=== PATIENT | female | born 1980 | race Caucasian/White ===

== ENCOUNTER 2018-11-17 14:05 | Inpatient (IN) | payer MEDICAID, OTHER ==
--- NOTE | 2018-11-17 14:43 | ER Document Report ---
ED Medical Screen (RME) - General Chief Complaint: Shortness Of Breath Stated Complaint: DIFFICULTY BREATHING Time Seen by Provider: 11/17/18 14:35 Primary Care Provider: TERESITA HUMPHREYS MD [Primary Care Provider] - Follow up as needed Mode of Arrival: Ambulatory Information source: Patient Notes: Patient is a 37-year-old female presented to the emergency department with multiple complaints. Patient reports pain and swelling to her right lower extremity. Patient states she had a DVT to this extremity approximately 4 years ago. Patient reports over the last week she has had increased pain and swelling, states that she wore compression hose which reduce the swelling however the pain persists. She states the pain feels similar to when she had a DVT in the past. Patient also reports extreme shortness of breath with any exertion as well as intermittent chest pain on the right-hand side. Patient denies any history of COPD or asthma. Patient reports that she is not on any anticoagulant therapy. Nursing staff made aware of need for large-bore IV in the AC. Exam: Lung sounds are clear and equal bilaterally. S1-S2 present with normal rate and rhythm. I have greeted and performed a rapid initial assessment of this patient. A comprehensive ED assessment and evaluation of the patient, analysis of test results and completion of the medical decision making process will be conducted by additional ED providers. Dictation of this chart was performed using voice recognition software; therefore, there may be some unintended grammatical errors. TRAVEL OUTSIDE OF THE [place] IN LAST 30 DAYS: No - Related Data Allergies/Adverse Reactions: latex [Latex] Allergy (Verified 11/17/18 14:13) Past Medical History - Past Medical History Cardiac Medical History: Reports: Hx Pulmonary Embolism Musculoskeltal Medical History: Reports Hx Fibromyalgia Psychiatric Medical History: Reports: Hx Bipolar Disorder, Hx Depression - Anxiety Past Surgical History: Reports: Hx Section, Hx Gastric Bypass Surgery - Immunizations Hx Diphtheria, Pertussis, Tetanus Vaccination: Yes Doctor's Discharge - Discharge Referrals: TERESITA HUMPHREYS MD [Primary Care Provider] - Follow up as needed
[2018-11-17 15:03] LABS: ABSOLUTE EOSINOPHILS # (AUTO) 0.1 10^3/uL (0.0-0.6); ABSOLUTE MONOCYTES (AUTO) 0.1 10^3/uL (0.1-1.4); ABSOLUTE NEUT (AUTO) 2.3 10^3/uL (1.7-8.2); BASOPHILS % (AUTO) 0.2 % (0-2); EOSINOPHILS % (AUTO) 1.5 % (0-6); HEMATOCRIT 17.6 % (36.0-47.0); MEAN CORPUSCULAR HEMOGLOBIN 45.4 pg (27.0-33.4); MEAN CORPUSCULAR HGB CONC 35.8 g/dL (32.0-36.0); PLATELET COUNT 168 10^3/uL (150-450); RED BLOOD COUNT 1.39 10^6/uL (3.72-5.28); RED CELL DISTRIBUTION WIDTH 23.2 % (11.5-14.0); SEGMENTED NEUTROPHILS % (AUTO) 67.3 % (42-78); TOTAL CELLS COUNTED % (AUTO) 100 %; WHITE BLOOD COUNT 3.4 10^3/uL (4.0-10.5)
[2018-11-17 15:07] LABS: PROTHROMBIN TIME 13.7 SEC (11.4-15.4)
[2018-11-17 15:08] LABS: PARTIAL THROMBOPLASTIN TIME 26.6 SEC (23.5-35.8)
[2018-11-17 15:10] LABS: MEAN CORPUSCULAR VOLUME 127 fl (80-97)
[2018-11-17 15:11] LABS: HEMOGLOBIN 6.3 g/dL (12.0-15.5)
[2018-11-17 15:26] LABS: ANISOCYTOSIS 3+; OVALOCYTES 1+; POIKILOCYTOSIS 2+; POLYCHROMASIA 1+; SCHISTOCYTES 1+; TEAR DROP CELLS 1+; TOXIC GRANULATION SLIGHT
[2018-11-17 15:27] LABS: PLATELET COMMENT ADEQUATE
[2018-11-17 15:32] LABS: ALANINE AMINOTRANSFERASE 23 U/L (9-52); ALBUMIN 4.5 g/dL (3.5-5.0); ALKALINE PHOSPHATASE 54 U/L (38-126); ANION GAP 10 (5-19); ASPARTATE AMINO TRANSFERASE 54 U/L (14-36); BILIRUBIN,DIRECT 0.3 mg/dL (0.0-0.4); BLOOD UREA NITROGEN 8 mg/dL (7-20); CALCIUM 9.3 mg/dL (8.4-10.2); CARBON DIOXIDE 29 mmol/L (22-30); CHLORIDE 101 mmol/L (98-107); GLUCOSE 92 mg/dL (75-110); POTASSIUM 4.5 mmol/L (3.6-5.0); SODIUM 139.7 mmol/L (137-145); TOTAL PROTEIN 6.9 g/dL (6.3-8.2)
--- NOTE | 2018-11-17 15:48 | RADIOLOGY REPORT (SQ) ---
EXAM DESCRIPTION: VENOUS UNILATERAL LOWER COMPLETED DATE/TIME: 11/17/2018 3:27 pm REASON FOR STUDY: hx DVT, pain/swelling COMPARISON: 08/22/2014 TECHNIQUE: Dynamic and static elizalde scale and color images acquired of the right leg venous system. S elected spectral images acquired with additional compression and augmentation maneuvers. The contrala teral common femoral vein and saphenofemoral junction were also imaged. Images stored on PACS. LIMITATIONS: None. FINDINGS: RIGHT COMMON FEMORAL: Normal phasicity, compression and augmentation. No visualized echogenic material on g ray scale. No defects on color images. FEMORAL: Normal compression and augmentation. No visualized echogenic material on elizalde scale. No defe cts on color images. POPLITEAL: The right popliteal vein is abnormal, partially occluded by acute hypoechoic clot. CALF VESSELS: Normal compression, augmentation. No visualized echogenic material on elizalde scale. No de fects on color images. GSV and SSV: Normal compression, augmentation. No visualized echogenic material on elizalde scale. No def ects on color images. ANY DEEP VENOUS INSUFFICIENCY: There is reflux in the popliteal vein on Valsalva. No other reflux on Valsalva. ANY EVIDENCE OF POPLITEAL CYST: No. OTHER: No other significant finding. LEFT COMMON FEMORAL VEIN AND SAPHENOFEMORAL JUNCTION: Normal phasicity, compression and augmentation. No visualized echogenic material on elizalde scale. No de fects on color images. IMPRESSION: INCOMPLETELY OCCLUSIVE HYPOECHOIC ACUTE CLOT IN THE RIGHT POPLITEAL VEIN COMMENT: REPORT CALLED TO THE PATIENT'S PRACTITIONER IN THE EMERGENCY ROOM TECHNICAL DOCUMENTATION: JOB ID: [id number] [employer]- All Rights Reserved Reading location - IP/workstation name: [email or web address]
[2018-11-17] MEDS ORDERED: NORMAL SALINE 250 ML IV PRN (16:05)
--- NOTE | 2018-11-17 16:18 | RADIOLOGY REPORT (SQ) ---
EXAM DESCRIPTION: CTA CHEST COMPLETED DATE/TIME: 11/17/2018 4:06 pm REASON FOR STUDY: sob, cp, hx of dvt, eval for PE COMPARISON: 09/25/2014 CT in chest TECHNIQUE: CT scan of the chest performed using helical scanning technique with dynamic intravenous contrast injection. Images reviewed with lung, soft tissue and bone windows. Reconstructed coronal and sagittal MPR images reviewed. Additional 3 dimensional post-processing performed to develop Maximal Intensity Projection images (AL P). All images stored on PACS. All CT scanners at this facility use dose modulation, iterative reconstruction, and/or weight based d osing when appropriate to reduce radiation dose to as low as reasonably achievable (ALARA). [facility]: Dose Right [facility]: CareDose [facility]: Dose Right [facility]: Teradose 4D [facility]: Canpages CONTRAST TYPE AND DOSE: contrast/concentration: Isovue 350.00 mg/ml; Total Contrast Delivered: 76.0 ml; Total Saline Delivered: 110.0 ml Contrast bolus optimized for the pulmonary arteries and thoracic aorta. RENAL FUNCTION: None required. The patient is less than 50 years old. RADIATION DOSE: CT Rad equipment meets quality standard of care and radiation dose reduction techniq ues were employed. CTDIvol: 6.6 - 16.5 mGy. DLP: 573 mGy-cm. . LIMITATIONS: None. FINDINGS: LUNGS AND PLEURA: No masses, infiltrates, or pneumothorax. No pleural effusions or pleura l calcifications. AORTA AND GREAT VESSELS: No aneurysm. No thoracic aortic dissection. HEART: No pericardial effusion. No significant coronary artery calcifications. PULMONARY ARTERIES: No emboli visualized in the main pulmonary arteries or the segmental branches. HILAR AND MEDIASTINAL STRUCTURES: No identified masses or abnormal nodes. HARDWARE: None in the chest. UPPER ABDOMEN: Surgical clips post gastric bypass THYROID AND OTHER SOFT TISSUES: No masses. No adenopathy. BONES: No acute or significant finding. 3D MIPS: Confirm above findings. OTHER: No other significant finding. IMPRESSION: NORMAL CTA OF THE CHEST. NO PULMONARY EMBOLI. COMMENT: Quality ID # [id number]: Final reports with documentation of one or more dose reduction techniques (e.g., Automated exposure control, adjustment of the mA and/or kV according to patient size, use of iterative reconstruction technique) TECHNICAL DOCUMENTATION: JOB ID: [id number] [employer]- All Rights Reserved Reading location - IP[facility]workstation name: [email or web address]
--- NOTE | 2018-11-17 16:34 | ER Document Report ---
ED General - General Mode of Arrival: Ambulatory TRAVEL OUTSIDE OF THE [place] IN LAST 30 DAYS: No <KAT VICK - Last Filed: 11/17/18 17:11> <JUAN TATUM E - Last Filed: 11/18/18 14:24> - General Chief Complaint: Shortness Of Breath Stated Complaint: DIFFICULTY BREATHING Time Seen by Provider: 11/17/18 14:35 - HPI Notes: Patient is a 37-year-old female with a history of gastric bypass, anemia requiring previous iron infusions, DVT, PE (no longer on any anticoagulation) who presents to the emergency department complaining of dyspnea on exertion, right leg pain/swelling, and intermittent right chest pain with deep breathing. Patient states that her leg pain and swelling has been on and off over the past 2 months in the dyspnea on exertion/right-sided chest pain more so over the past week. Patient states that she was originally placed on Xarelto for DVT and subsequently developed PE thereafter and was then put on Lovenox and Coumadin. She was seen by hematology. Patient states that they do not have an exact cause for her blood clotting, but she was smoking, on control, and over the age of 28. She is no longer smoking or on any control. Patient states that she ran out of her insurance a year after starting her medicines and has not been on it since. She is still eating and drinking without difficulties. She is urinating normally and having normal bowel movements. She has been no melena or hematochezia. No heavy menstrual bleeding. Denies any headache, fever, neck pain, URI, sore throat, palpitations, syncope, cough, wheeze, abdominal pain, nausea/vomiting/diarrhea, urinary retention, dysuria, hematuria, or rash. (KAT VICK) - Related Data Allergies/Adverse Reactions: latex [Latex] Allergy (Verified 11/17/18 14:13) Past Medical History - General Information source: Patient - Social History Smoking Status: Former Smoker Chew tobacco use (# tins/day): No Frequency of alcohol use: None Drug Abuse: None Family History: Reviewed & Not Pertinent Patient has suicidal ideation: No Patient has homicidal ideation: No - Past Medical History Cardiac Medical History: Reports: Hx Pulmonary Embolism Renal/ Medical History: Denies: Hx Peritoneal Dialysis Musculoskeletal Medical History: Reports Hx Fibromyalgia Psychiatric Medical History: Reports: Hx Bipolar Disorder, Hx Depression - Anxiety Past Surgical History: Reports: Hx Section, Hx Gastric Bypass Surgery - Immunizations Hx Diphtheria, Pertussis, Tetanus Vaccination: Yes <KTA VICK - Last Filed: 11/17/18 17:11> Review of Systems - Review of Systems -: Yes All other systems reviewed and negative <KAT VICK - Last Filed: 11/17/18 17:11> Physical Exam <KAT VICK - Last Filed: 11/17/18 17:11> - Vital signs Vitals: Temp Pulse BP Pulse Ox 98.2 F 91 139/81 H 100 11/17/18 14:35 11/17/18 14:35 11/17/18 14:35 11/17/18 14:35 - Notes Notes: PHYSICAL EXAMINATION: GENERAL: Well-appearing, well-nourished and in no acute distress. HEAD: Atraumatic, normocephalic. EYES: Pupils equal round and reactive to light, extraocular movements intact, sclera anicteric, conjunctiva are normal. ENT: Nares patent and without discharge. oropharynx clear without exudates. No tonsilar hypertrophy or erythema. Moist mucous membranes. NECK: Normal range of motion, supple without lymphadenopathy LUNGS: Breath sounds clear to auscultation bilaterally and equal. No wheezes rales or rhonchi. HEART: Regular rate and rhythm without murmurs, rubs, gallops. ABDOMEN: Soft, nontender, nondistended abdomen. No guarding, no rebound. No masses appreciated. Normal bowel sounds present. No CVA tenderness bilaterally. Musculoskeletal: FROM to passive/active. Strength 5+/5. Jarocho neg. + mild swelling RLE >LLE. Extremities: No cyanosis, clubbing, or edema b/l. Peripheral pulses 2+. Capillary refill less than 3 seconds. NEUROLOGICAL: Normal speech, normal gait. PSYCH: Normal mood, normal affect. SKIN: Warm, Dry, normal turgor, no rashes or lesions noted. (KAT VICK) Course - Laboratory Result Diagrams: 11/17/18 14:46 11/17/18 14:46 <KAT VICK - Last Filed: 11/17/18 17:11> - Laboratory Result Diagrams: 11/18/18 04:20 11/18/18 04:20 - Diagnostic Test Radiology reviewed: Image reviewed, Reports reviewed <JUAN TATUM - Last Filed: 11/18/18 14:24> - Re-evaluation Re-evalutation: 11/17/18 17:[address] Tatum who is in agreement with admit/plan. Patient is an afebrile, well-hydrated, 37-year-old female who presents emergency department with an acute DVT to the right leg as well as dyspnea on exertion and subsequent anemia requiring transfusion with a hemoglobin of 6.3. Vitals are currently acceptable. PE is otherwise unremarkable. See Doppler result. CTA of the chest was unremarkable. 2 units of blood has been ordered as well as Lovenox. I did call and review with our hospitalist, Dr. Hoyt, who accepted pt to telemetry. Pt in agreement with plan. (KAT VICK) 11/18/18 14:23 Patient was seen and examined as requested by [facility]. Patient is a 37-year-old female with previous history of DVT who presents with intermittent right lower extremity swelling, shortness of breath. Patient found to have a hemoglobin of 6.3. CT of the chest was negative for PE but Doppler was positive for DVT. Concern as patient has no insurance, no follow-up so best outcome for this patient is to be brought into the hospital. PHYSICAL EXAMINATION: GENERAL: Well-appearing, well-nourished and in no acute distress. HEAD: Atraumatic, normocephalic. EYES: Pupils equal round extraocular movements intact, conjunctiva are normal. ENT: Nares patent NECK: Normal range of motion LUNGS: No respiratory distress Musculoskeletal: Normal range of motion NEUROLOGICAL: Normal speech, normal gait. PSYCH: Normal mood, normal affect. SKIN: Warm, Dry, normal turgor, no rashes or lesions noted. Patient was accepted by the hospitalist to telemetry (JUAN TATUM) - Vital Signs Vital signs: Temp Pulse Resp BP Pulse Ox 98.1 F 65 16 101/63 97 11/18/18 11:26 11/18/18 11:26 11/18/18 11:26 11/18/18 11:26 11/18/18 11:26 - Laboratory Laboratory results interpreted by me: 04/29/19 04/29/19 04/29/19 14:46 14:46 14:46 WBC 3.4 L RBC 1.39 L Hgb 6.3 L Hct 17.6 L MCV 127 H MCH 45.4 H RDW 23.2 H Monocytes % 2.0 L Total Bilirubin 2.0 H AST 54 H Crossmatch See Detail Discharge - Discharge Admitting Provider: Evelina (Hospitalist) Unit Admitted: Telemetry <KAT IVCK - Last Filed: 11/17/18 17:11> <JUAN TATUM - Last Filed: 11/18/18 14:24> - Discharge Clinical Impression: DVT (deep venous thrombosis) Qualifiers: DVT location: lower extremity Affected thrombotic vein of extremity: popliteal Chronicity: acute Laterality: right Qualified Code(s): I82.431 - Acute embolism and thrombosis of right popliteal vein Anemia Qualifiers: Anemia type: B12 deficiency Vitamin B12 deficiency anemia type: other dietary B12 deficiency Qualified Code(s): D51.3 - Other dietary vitamin B12 deficiency anemia Condition: Stable Disposition: ADMITTED INPATIENT
[2018-11-17] MEDS ORDERED: MORPHINE SULFATE 10 MG/ML INJ IV ONE (17:20)
[2018-11-17] MEDS ORDERED: MAG HYDROX/AL HYDROX/SIMETH SUSP 30 ML UDCUP PO PRN (17:40)
[2018-11-17] MEDS ORDERED: PROMETHAZINE HCL INJ 25 MG/1 ML VIAL IV PRN (17:40)
[2018-11-17] MEDS ORDERED: ALBUTEROL SULFATE 0.083% NEB 2.5 MG/3 ML AMPUL NEB PRN (17:40)
[2018-11-17] MEDS: ENOXAPARIN SODIUM INJ 100 MG/1 ML DISP.SYRIN SUBCUT SCH ×2 (17:50→21:57)
--- NOTE | 2018-11-17 18:19 | PDOC H&P ---
History of Present Illness Admission Date/PCP: 11/17/18 17:19 History of Present Illness: FREDDIE TAYLOR is a 37 year old female medical history of gastric bypass, chronic anemia requiring previous iron infusions, DVT, PE (currently not on anticoagulation) presented to ED complaining of dyspnea on exertion, right lower extremity swelling and pain, and right-sided pleuritic chest pain. Patient stated that her leg pain and swelling has been going on on and off for the last 2 months and her dyspnea on exertion and right-sided chest pain has been happening for the last 1 week. For her DVT she was originally placed on Xarelto and subsequently had a PE and was switched to Coumadin and Lovenox and Coumadin. She was followed by environmental issues instructor and states that she was never worked up for hypercoagulable state or chronic anemia, it was presumed that her blood clotting was due to her smoking, being over 28 and being on control. She no longer smokes, and is not on a control. Unfortunately her insurance ran out and she has not been taking her anticoagulation for the last 1 year. She denies having any miscarriages, had one successful , denies any family history of clotting disorder, or anemia. Denies any recent travel, surgery, trauma, history of malignancy, miscarriages, hematuria, vaginal bleeding, menstrual bleeding, hematochezia, melena, hemoptysis or hematemesis. She denies any fever, chills, nausea, vomiting, diarrhea, constipation, numbness, tingling, weakness or any urinary symptoms. In ED she was found to have hemoglobin of 6.3, coags within normal limits, history within normal limits, troponins negative. CTA negative for PE, venous Doppler positive for and completely occlusive hypoechoic acute clot in the right popliteal vein. Past Medical History Cardiac Medical History: Reports: Pulmonary Embolism Musculoskeltal Medical History: Reports: Fibromyalgia Psychiatric Medical History: Reports: Bipolar Disorder, Depression - Anxiety Past Surgical History Past Surgical History: Reports: Section, Gastric Bypass Surgery Social History Smoking Status: Former Smoker Frequency of Alcohol Use: Occasional Hx Recreational Drug Use: No Hx Prescription Drug Abuse: No Family History Family History: Reviewed & Not Pertinent Parental Family History Reviewed: Yes Children Family History Reviewed: Yes Sibling(s) Family History Reviewed.: Yes Medication/Allergy Allergies/Adverse Reactions: latex [Latex] Allergy (Verified 11/17/18 14:13) Review of Systems Review of Systems: as per HPI Physical Exam Vital Signs: Temp Pulse Resp BP Pulse Ox 98.2 F 91 139/81 H 100 11/17/18 14:35 11/17/18 14:35 11/17/18 14:35 11/17/18 14:35 Intake & Output 11/16/18 11/17/18 11/18/18 06:59 06:59 06:59 Weight 88.1 kg General appearance: PRESENT: no acute distress, well-developed, well-nourished Head exam: PRESENT: atraumatic, normocephalic Eye exam: PRESENT: conjunctiva pink, EOMI, PERRLA. ABSENT: scleral icterus Ear exam: PRESENT: normal external ear exam Mouth exam: PRESENT: moist, tongue midline Neck exam: ABSENT: carotid bruit, JVD, lymphadenopathy, thyromegaly Respiratory exam: PRESENT: clear to auscultation na. ABSENT: rales, rhonchi, wheezes Cardiovascular exam: PRESENT: RRR. ABSENT: diastolic murmur, rubs, systolic murmur Pulses: PRESENT: normal dorsalis pedis pul Vascular exam: PRESENT: normal capillary refill GI/Abdominal exam: PRESENT: normal bowel sounds, soft. ABSENT: distended, guard ing, mass, organolmegaly, rebound, tenderness Rectal exam: PRESENT: deferred Extremities exam: PRESENT: full ROM, tenderness - TTP right calf. ABSENT: calf tenderness, clubbing, pedal edema Neurological exam: PRESENT: alert, awake, oriented to person, oriented to place, oriented to time, oriented to situation, CN II-XII grossly intact. ABSENT: motor sensory deficit Psychiatric exam: PRESENT: appropriate affect, normal mood. ABSENT: homicidal ideation, suicidal ideation Skin exam: PRESENT: dry, intact, warm. ABSENT: cyanosis, rash Results Laboratory Results: 11/17/18 14:46 11/17/18 14:46 11/17/18 11/17/18 11/17/18 14:46 14:46 14:46 WBC 3.4 L RBC 1.39 L Hgb 6.3 L Hct 17.6 L MCV 127 H MCH 45.4 H MCHC 35.8 RDW 23.2 H Plt Count 168 Seg Neutrophils % 67.3 Lymphocytes % 29.0 Monocytes % 2.0 L Eosinophils % 1.5 Basophils % 0.2 Absolute Neutrophils 2.3 Absolute Lymphocytes 1.0 Absolute Monocytes 0.1 Absolute Eosinophils 0.1 Absolute Basophils 0.0 Sodium 139.7 Potassium 4.5 Chloride 101 Carbon Dioxide 29 Anion Gap 10 BUN 8 Creatinine 0.60 Est GFR ( Amer) > 60 Est GFR (Non-Af Amer) > 60 Glucose 92 Calcium 9.3 Total Bilirubin 2.0 H AST 54 H ALT 23 Alkaline Phosphatase 54 Total Protein 6.9 Albumin 4.5 Blood Type B POSITIVE Antibody Screen NEGATIVE 11/17/18 14:46 Troponin I < 0.012 Impressions: Venous Doppler Study 11/17/18 14:39 IMPRESSION: INCOMPLETELY OCCLUSIVE HYPOECHOIC ACUTE CLOT IN THE RIGHT POPLITEAL VEIN Chest/Abdomen CTA 11/17/18 14:43 IMPRESSION: NORMAL CTA OF THE CHEST. NO PULMONARY EMBOLI. Assessment and Plan - Diagnosis (1) DVT (deep venous thrombosis) Qualifiers: DVT location: lower extremity Affected thrombotic vein of extremity: popliteal Chronicity: acute Laterality: right Qualified Code(s): I82.431 - Acute embolism and thrombosis of right popliteal vein Is this a current diagnosis for this admission?: Yes Plan: History of recurrent DVT and PE. Start on therapeutic dose Lovenox. Will work-up for hypercoagulable state. Consult hematology. Admit to telemetry. (2) Anemia Qualifiers: Anemia type: unspecified type Qualified Code(s): D64.9 - Anemia, unspecified Is this a current diagnosis for this admission?: Yes Plan: History of chronic anemia. No obvious source of bleeding. Iron panel, stool guaiac. Consult hematology. Transfuse 2 units PRBC. H&H tomorrow. Supportive transfusions. Transfuse if less than 7, symptomatic, or actively bleeding. (3) Obesity Qualifiers: Body mass index: BMI 31.0-31.9 Is this a current diagnosis for this admission?: No Plan: History of gastric bypass. Diet and lifestyle modification.
[2018-11-17 19:28] LABS: INTERNATIONAL RATION (INR) 1.05; PROTHROMBIN TIME 14.2 SEC (11.4-15.4)
[2018-11-17 19:40] LABS: IRON(TIBC) 141.9 ug/dL (37-170)
[2018-11-17 20:47] LABS: FOLATE 8.19 ng/mL (>2.76)
[2018-11-17] MEDS: FAMOTIDINE 20 MG TABLET PO SCH (21:56)
[2018-11-17] MEDS: OXYCODONE-ACETAMINOPHEN 5-325 MG TABLET PO PRN (21:56)
[2018-11-17 22:19] LABS: APPEARANCE,URINE CLEAR; BILIRUBIN,URINE NEGATIVE (NEGATIVE); COLOR,URINE STRAW; GLUCOSE, URINE NEGATIVE (NEGATIVE); KETONES,URINE NEGATIVE (NEGATIVE); LEUKOCYTE ESTERASE,URINE NEGATIVE (NEGATIVE); NITRITE,URINE NEGATIVE (NEGATIVE); PROTEIN,URINE NEGATIVE (NEGATIVE); URINE SPECIFIC GRAVITY 1.011; UROBILINOGEN,URINE NEGATIVE mg/dL (<2.0)
[2018-11-17] MEDS ORDERED: MELATONIN 5 MG TABLET PO ONE (23:45)
[2018-11-18] MEDS: DEXTROSE 5%-NORMAL SALINE 1,000 ML IV PRN (02:05)
[2018-11-18 04:50] LABS: HEMATOCRIT 23.2 % (36.0-47.0); HEMOGLOBIN 8.2 g/dL (12.0-15.5); MEAN CORPUSCULAR HEMOGLOBIN 37.4 pg (27.0-33.4); MEAN CORPUSCULAR HGB CONC 35.5 g/dL (32.0-36.0); RED CELL DISTRIBUTION WIDTH 31.7 % (11.5-14.0)
[2018-11-18 05:12] LABS: ANION GAP 8 (5-19); BLOOD UREA NITROGEN 6 mg/dL (7-20); CALCIUM 8.5 mg/dL (8.4-10.2); CARBON DIOXIDE 27 mmol/L (22-30); CHLORIDE 105 mmol/L (98-107); GLUCOSE 94 mg/dL (75-110); POTASSIUM 3.9 mmol/L (3.6-5.0); SODIUM 140.1 mmol/L (137-145)
[2018-11-18 05:28] LABS: MEAN CORPUSCULAR VOLUME 105 fl (80-97)
[2018-11-18 05:31] LABS: PLATELET COUNT 144 10^3/uL (150-450)
[2018-11-18] MEDS: OXYCODONE-ACETAMINOPHEN 5-325 MG TABLET PO PRN ×3 (06:00→18:16)
[2018-11-18] MEDS ORDERED: HYDROXOCOBALAMIN IV SCH (07:45)
--- NOTE | 2018-11-18 08:56 | PDOC CONSULTATION ---
Consultation Consult Date: 11/18/18 Consult reason:: Hematology consultation was requested for patient with recurrent DVT and anemia. History of Present Illness Admission Date/PCP: 11/17/18 17:19 History of Present Illness: FREDDIE TAYLOR is a 37 year old female who states that she was first diagnosed with DVT 4 years ago. She states that she was on blood thinners for about a year, but then she lost insurance and was lost to follow-up. She states that she was also treated with IV iron and B12 shots for anemia. Today, she states that she began having leg swelling and pain but just treated this conservatively. She then became more concerned when she started having dizziness and dyspnea. She presented to the ED and was found to have low blood counts as well as a new DVT. She has been started on Lovenox. According to office records, she was seen by Dr. Sahu in Jul 2014. At that time, APL Ab, Lupus Anti, Factor V Leiden, Prothrombin gene mutation, Protein C, Protein S and AT III were all negative. She was refractory to Xarelto and was given Arixtra and ASA. She was also treated for B12 deficiency. She has a history of gastric bypass as well. Past Medical History Cardiac Medical History: Reports: DVT, Pulmonary Embolism Musculoskeltal Medical History: Reports: Fibromyalgia Psychiatric Medical History: Reports: Bipolar Disorder, Depression - Anxiety Hematology: Reports: Anemia, Other - B12 deficiency Past Surgical History Past Surgical History: Reports: Section, Gastric Bypass Surgery Social History Smoking Status: Former Smoker Number of Years Smokin Last Time Smoked: Frequency of Alcohol Use: None Hx Recreational Drug Use: No Drugs: None Hx Prescription Drug Abuse: No Past Social History Note: Patient is single with 1 child and 1 grandchild. She stopped smoking 18 months ago. Family History Family History: No family history of clots. Parental Family History Reviewed: Yes Children Family History Reviewed: Yes Sibling(s) Family History Reviewed.: Yes Medication/Allergy Home Medications: No Home Medications 11/17/18 Allergies/Adverse Reactions: latex [Latex] Allergy (Verified 11/17/18 14:13) Review of Systems Constitutional: ABSENT: fever(s), headache(s) Eyes: ABSENT: visual disturbances Ears: ABSENT: hearing changes Nose, Mouth, and Throat: ABSENT: sore throat Cardiovascular: PRESENT: dyspnea on exertion Respiratory: PRESENT: dyspnea Gastrointestinal: ABSENT: constipation, nausea Genitourinary: ABSENT: dysuria Integumentary: ABSENT: rash Neurological: PRESENT: dizziness, weakness Hematologic/Lymphatic: ABSENT: lymphadenopathy Physical Exam Vital Signs: Temp Pulse Resp BP Pulse Ox 97.9 F 64 16 102/76 100 11/18/18 05:35 11/18/18 07:00 11/18/18 05:35 11/18/18 05:39 11/18/18 05:35 Intake & Output 11/17/18 11/18/18 11/19/18 06:59 06:59 06:59 Intake Total 1950 Output Total 400 Balance 1550 Weight 89.8 kg General appearance: PRESENT: well-developed, well-nourished Exam: 37 year old female. Head exam: PRESENT: normocephalic Eye exam: PRESENT: EOMI Mouth exam: PRESENT: neck supple, tongue midline Neck exam: ABSENT: lymphadenopathy, tenderness Respiratory exam: PRESENT: clear to auscultation na, unlabored Cardiovascular exam: PRESENT: RRR GI/Abdominal exam: PRESENT: soft. ABSENT: organolmegaly, tenderness Extremities exam: ABSENT: pedal edema Musculoskeletal exam: PRESENT: normal inspection Neurological exam: PRESENT: alert, awake Psychiatric exam: PRESENT: appropriate affect Skin exam: PRESENT: normal color Results Laboratory Results: 11/18/18 04:20 11/18/18 04:20 11/17/18 11/17/18 11/17/18 14:46 14:46 14:46 WBC 3.4 L RBC 1.39 L Hgb 6.3 L Hct 17.6 L MCV 127 H MCH 45.4 H MCHC 35.8 RDW 23.2 H Plt Count 168 Seg Neutrophils % 67.3 Lymphocytes % 29.0 Monocytes % 2.0 L Eosinophils % 1.5 Basophils % 0.2 Absolute Neutrophils 2.3 Absolute Lymphocytes 1.0 Absolute Monocytes 0.1 Absolute Eosinophils 0.1 Absolute Basophils 0.0 Retic Count (auto) Absolute Retic Sodium 139.7 Potassium 4.5 Chloride 101 Carbon Dioxide 29 Anion Gap 10 BUN 8 Creatinine 0.60 Est GFR ( Amer) > 60 Est GFR (Non-Af Amer) > 60 Glucose 92 Calcium 9.3 Iron TIBC % Saturation Ferritin Total Bilirubin 2.0 H AST 54 H ALT 23 Alkaline Phosphatase 54 Total Protein 6.9 Albumin 4.5 Vitamin B12 Folate Urine Color Urine Appearance Urine pH Ur Specific [place] Urine Protein Urine Glucose (UA) Urine Ketones Urine Blood Urine Nitrite Ur Leukocyte Esterase Urine WBC (Auto) Urine RBC (Auto) Blood Type B POSITIVE Antibody Screen NEGATIVE 11/17/18 11/17/18 11/17/18 19:00 19:00 21:46 WBC RBC Hgb Hct MCV MCH MCHC RDW Plt Count Seg Neutrophils % Lymphocytes % Monocytes % Eosinophils % Basophils % Absolute Neutrophils Absolute Lymphocytes Absolute Monocytes Absolute Eosinophils Absolute Basophils Retic Count (auto) 2.80 Absolute Retic 0.040 Sodium Potassium Chloride Carbon Dioxide Anion Gap BUN Creatinine Est GFR ( Amer) Est GFR (Non-Af Amer) Glucose Calcium Iron 141.9 TIBC 276 % Saturation 51 Ferritin 320.00 H Total Bilirubin AST ALT Alkaline Phosphatase Total Protein Albumin Vitamin B12 < 159.0 L Folate 8.19 Urine Color STRAW Urine Appearance CLEAR Urine pH 7.0 Ur Specific [place] 1.011 Urine Protein NEGATIVE Urine Glucose (UA) NEGATIVE Urine Ketones NEGATIVE Urine Blood NEGATIVE Urine Nitrite NEGATIVE Ur Leukocyte Esterase NEGATIVE Urine WBC (Auto) 0 Urine RBC (Auto) 0 Blood Type Antibody Screen 11/18/18 11/18/18 04:20 04:20 WBC 3.0 L RBC 2.20 L Hgb 8.2 L Hct 23.2 L MCV 105 H D MCH 37.4 H MCHC 35.5 RDW 31.7 H Plt Count 144 L Seg Neutrophils % Lymphocytes % Monocytes % Eosinophils % Basophils % Absolute Neutrophils Absolute Lymphocytes Absolute Monocytes Absolute Eosinophils Absolute Basophils Retic Count (auto) Absolute Retic Sodium 140.1 Potassium 3.9 Chloride 105 Carbon Dioxide 27 Anion Gap 8 BUN 6 L Creatinine 0.55 Est GFR ( Amer) > 60 Est GFR (Non-Af Amer) > 60 Glucose 94 Calcium 8.5 Iron TIBC % Saturation Ferritin Total Bilirubin AST ALT Alkaline Phosphatase Total Protein Albumin Vitamin B12 Folate Urine Color Urine Appearance Urine pH Ur Specific [place] Urine Protein Urine Glucose (UA) Urine Ketones Urine Blood Urine Nitrite Ur Leukocyte Esterase Urine WBC (Auto) Urine RBC (Auto) Blood Type Antibody Screen 11/17/18 14:46 Troponin I < 0.012 Impressions: Venous Doppler Study 11/17/18 14:39 IMPRESSION: INCOMPLETELY OCCLUSIVE HYPOECHOIC ACUTE CLOT IN THE RIGHT POPLITEAL VEIN Chest/Abdomen CTA 11/17/18 14:43 IMPRESSION: NORMAL CTA OF THE CHEST. NO PULMONARY EMBOLI. Assessment & Plan - Diagnosis (1) DVT (deep venous thrombosis) Qualifiers: DVT location: lower extremity Affected thrombotic vein of extremity: popliteal Chronicity: acute Laterality: right Qualified Code(s): I82.431 - Acute embolism and thrombosis of right popliteal vein Is this a current diagnosis for this admission?: Yes Plan: Currently on Lovenox. Plan to transition to coumadin. Goal INR will be 2-3. Lovenox should not be stopped until INR is >2. She developed PE while on Xarelto in the past. Her hypercoag workup in the past has been negative. I will be happy to follow her in the office. I believe she will need anticoagulation indefinitely. I am very happy that she has now stopped smoking. 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 I will start B12 injections. She has had these in the past without difficulty. She does not believe she is allergic to Latex. She will also need to continue B12 injections life-long. I will be happy to arrange these through the office. - Plan Summary Plan Summary: I will be happy to follow in the office.
[2018-11-18] MEDS: DOCUSATE SODIUM 100 MG CAPSULE PO SCH (10:39)
[2018-11-18] MEDS: FAMOTIDINE 20 MG TABLET PO SCH ×2 (10:39→21:36)
[2018-11-18] MEDS: CYANOCOBALAMIN (VITAMIN B-12) INJ 1000 MCG/1 ML VIAL IM SCH (10:40)
[2018-11-18] MEDS: ENOXAPARIN SODIUM INJ 100 MG/1 ML DISP.SYRIN SUBCUT SCH ×2 (10:43→21:36)
[2018-11-18] MEDS: ONDANSETRON 4 MG TAB.RAPDIS PO PRN ×2 (13:32→17:41)
--- NOTE | 2018-11-18 18:54 | PDOC PROGRESS REPORT ---
Subjective Progress Note for:: 11/18/18 Subjective:: No adverse events overnight. No new complaints. Vital signs were stable. No chest pain or shortness of breath. Says she still has some leg swelling in her leg is still bothering her some but that has improved. Reason For Visit: DVT,ANEMIA Physical Exam Vital Signs: Temp Pulse Resp BP Pulse Ox 98.0 F 65 16 102/76 98 11/18/18 18:21 11/18/18 18:21 11/18/18 18:21 11/18/18 18:21 11/18/18 18:21 Intake & Output 11/17/18 11/18/18 11/19/18 06:59 06:59 06:59 Intake Total 1950 1472 Output Total 400 Balance 1550 1472 Weight 89.8 kg General appearance: PRESENT: no acute distress, cooperative, disheveled, obese Respiratory exam: PRESENT: clear to auscultation na, symmetrical, unlabored. ABSENT: accessory muscle use, crackles, prolonged expiratory phas, rhonchi, tachypnea, wheezes Cardiovascular exam: PRESENT: RRR, +S1, +S2 Pulses: PRESENT: normal carotid pulses Vascular exam: PRESENT: normal capillary refill GI/Abdominal exam: PRESENT: normal bowel sounds, soft. ABSENT: distended, guarding, rebound, tenderness Extremities exam: PRESENT: +1 edema - Right leg. ABSENT: clubbing, pedal edema Musculoskeletal exam: PRESENT: normal inspection. ABSENT: deformity Neurological exam: PRESENT: alert, awake, oriented to person, oriented to place, oriented to time, oriented to situation Psychiatric exam: PRESENT: appropriate affect, normal mood Skin exam: PRESENT: dry, warm Results Laboratory Results: 11/18/18 04:20 11/18/18 04:20 11/17/18 11/17/18 11/17/18 14:46 19:00 19:00 WBC RBC Hgb Hct MCV MCH MCHC RDW Plt Count Retic Count (auto) 2.80 Absolute Retic 0.040 Sodium Potassium Chloride Carbon Dioxide Anion Gap BUN Creatinine Est GFR ( Amer) Est GFR (Non-Af Amer) Glucose Calcium Iron 141.9 TIBC 276 % Saturation 51 Ferritin 320.00 H Vitamin B12 < 159.0 L Folate 8.19 Urine Color Urine Appearance Urine pH Ur Specific [place] Urine Protein Urine Glucose (UA) Urine Ketones Urine Blood Urine Nitrite Ur Leukocyte Esterase Urine WBC (Auto) Urine RBC (Auto) Blood Type B POSITIVE Antibody Screen NEGATIVE 11/17/18 11/18/18 11/18/18 21:46 04:20 04:20 WBC 3.0 L RBC 2.20 L Hgb 8.2 L Hct 23.2 L MCV 105 H D MCH 37.4 H MCHC 35.5 RDW 31.7 H Plt Count 144 L Retic Count (auto) Absolute Retic Sodium 140.1 Potassium 3.9 Chloride 105 Carbon Dioxide 27 Anion Gap 8 BUN 6 L Creatinine 0.55 Est GFR ( Amer) > 60 Est GFR (Non-Af Amer) > 60 Glucose 94 Calcium 8.5 Iron TIBC % Saturation Ferritin Vitamin B12 Folate Urine Color STRAW Urine Appearance CLEAR Urine pH 7.0 Ur Specific [place] 1.011 Urine Protein NEGATIVE Urine Glucose (UA) NEGATIVE Urine Ketones NEGATIVE Urine Blood NEGATIVE Urine Nitrite NEGATIVE Ur Leukocyte Esterase NEGATIVE Urine WBC (Auto) 0 Urine RBC (Auto) 0 Blood Type Antibody Screen 11/17/18 14:46 Troponin I < 0.012 Impressions: Venous Doppler Study 11/17/18 14:39 IMPRESSION: INCOMPLETELY OCCLUSIVE HYPOECHOIC ACUTE CLOT IN THE RIGHT POPLITEAL VEIN Chest/Abdomen CTA 11/17/18 14:43 IMPRESSION: NORMAL CTA OF THE CHEST. NO PULMONARY EMBOLI. Assessment and Plan - Diagnosis (1) DVT (deep venous thrombosis) Qualifiers: DVT location: lower extremity Affected thrombotic vein of extremity: popliteal Chronicity: acute Laterality: right Qualified Code(s): I82.431 - Acute embolism and thrombosis of right popliteal vein Is this a current diagnosis for this admission?: Yes Plan: She is on Lovenox. We have started her on Coumadin. She will stay on Coumadin for at least 5 days, and if her INR is not therapeutic after 5 days she will stay on Lovenox until her INR is 2. (2) Anemia Qualifiers: Anemia type: B12 deficiency Vitamin B12 deficiency anemia type: other dietary B12 deficiency Qualified Code(s): D51.3 - Other dietary vitamin B12 deficiency anemia Is this a current diagnosis for this admission?: Yes Plan: B12 injections have been ordered. She will follow-up to get these done as an outpatient with hematology, along with her anticoagulation. - Time Time Spent with patient: 15-24 minutes
[2018-11-18] MEDS: MELATONIN 5 MG TABLET PO SCH (21:36)
[2018-11-18] MEDS: WARFARIN SODIUM 5 MG TABLET PO SCH (21:36)
[2018-11-19] MEDS: DEXTROSE 5%-NORMAL SALINE 1,000 ML IV PRN ×2 (02:42→21:16)
[2018-11-19] MEDS: OXYCODONE-ACETAMINOPHEN 5-325 MG TABLET PO PRN ×4 (02:51→21:08)
[2018-11-19] MEDS: ONDANSETRON 4 MG TAB.RAPDIS PO PRN ×3 (02:51→16:49)
--- NOTE | 2018-11-19 08:54 | PDOC PROGRESS REPORT ---
Subjective Progress Note for:: 11/19/18 Subjective:: Doing a little better today, now on B12 shots for severe B12 def and on lovenox and warfarin Reason For Visit: DVT,ANEMIA Physical Exam Vital Signs: Temp Pulse Resp BP Pulse Ox 97.5 F 66 12 105/52 L 100 11/19/18 07:38 11/19/18 07:38 11/19/18 07:38 11/19/18 07:38 11/19/18 07:38 Intake & Output 11/18/18 11/19/18 11/20/18 06:59 06:59 06:59 Intake Total 1950 1827 Output Total 400 Balance 1550 1827 Weight 89.8 kg 91.3 kg General appearance: PRESENT: no acute distress, well-developed, well-nourished Head exam: PRESENT: atraumatic, normocephalic Eye exam: PRESENT: conjunctiva pink, EOMI, PERRLA. ABSENT: scleral icterus Ear exam: PRESENT: normal external ear exam Mouth exam: PRESENT: moist, tongue midline Neck exam: ABSENT: carotid bruit, JVD, lymphadenopathy, thyromegaly Respiratory exam: PRESENT: clear to auscultation na. ABSENT: rales, rhonchi, wheezes Cardiovascular exam: PRESENT: RRR. ABSENT: diastolic murmur, rubs, systolic murmur Pulses: PRESENT: normal dorsalis pedis pul Vascular exam: PRESENT: normal capillary refill GI/Abdominal exam: PRESENT: normal bowel sounds, soft. ABSENT: distended, guarding, mass, organolmegaly, rebound, tenderness Rectal exam: PRESENT: deferred Extremities exam: PRESENT: full ROM. ABSENT: calf tenderness, clubbing, pedal edema Neurological exam: PRESENT: alert, awake, oriented to person, oriented to place, oriented to time, oriented to situation, CN II-XII grossly intact. ABSENT: motor sensory deficit Psychiatric exam: PRESENT: appropriate affect, normal mood. ABSENT: homicidal ideation, suicidal ideation Skin exam: PRESENT: dry, intact, warm. ABSENT: cyanosis, rash Results Laboratory Results: 11/18/18 04:20 11/18/18 04:20 11/17/18 14:46 Troponin I < 0.012 Impressions: Venous Doppler Study 11/17/18 14:39 IMPRESSION: INCOMPLETELY OCCLUSIVE HYPOECHOIC ACUTE CLOT IN THE RIGHT POPLITEAL VEIN Chest/Abdomen CTA 11/17/18 14:43 IMPRESSION: NORMAL CTA OF THE CHEST. NO PULMONARY EMBOLI. Assessment & Plan - Diagnosis (1) DVT (deep venous thrombosis) Qualifiers: DVT location: lower extremity Affected thrombotic vein of extremity: popliteal Chronicity: acute Laterality: right Qualified Code(s): I82.431 - Acute embolism and thrombosis of right popliteal vein Is this a current diagnosis for this admission?: Yes Plan: Cont pt on warfarin until therapeutic (2) Anemia Qualifiers: Anemia type: B12 deficiency Vitamin B12 deficiency anemia type: other dietary B12 deficiency Qualified Code(s): D51.3 - Other dietary vitamin B12 deficiency anemia Is this a current diagnosis for this admission?: Yes Plan: cont b12 shots
[2018-11-19 09:33] LABS: INTERNATIONAL RATION (INR) 1.05; PROTHROMBIN TIME 14.2 SEC (11.4-15.4)
[2018-11-19 09:37] LABS: HEMATOCRIT 22.3 % (36.0-47.0); MEAN CORPUSCULAR HEMOGLOBIN 37.6 pg (27.0-33.4); MEAN CORPUSCULAR HGB CONC 35.6 g/dL (32.0-36.0); MEAN CORPUSCULAR VOLUME 105 fl (80-97); PLATELET COUNT 116 10^3/uL (150-450); RED BLOOD COUNT 2.12 10^6/uL (3.72-5.28); RED CELL DISTRIBUTION WIDTH 33.3 % (11.5-14.0); WHITE BLOOD COUNT 2.2 10^3/uL (4.0-10.5)
[2018-11-19 09:55] LABS: ANION GAP 8 (5-19); BLOOD UREA NITROGEN 4 mg/dL (7-20); CALCIUM 8.2 mg/dL (8.4-10.2); CARBON DIOXIDE 28 mmol/L (22-30); CHLORIDE 106 mmol/L (98-107); GLUCOSE 88 mg/dL (75-110); POTASSIUM 3.8 mmol/L (3.6-5.0)
[2018-11-19] MEDS: FAMOTIDINE 20 MG TABLET PO SCH ×2 (10:23→21:08)
[2018-11-19] MEDS: DOCUSATE SODIUM 100 MG CAPSULE PO SCH (10:23)
[2018-11-19] MEDS: ENOXAPARIN SODIUM INJ 100 MG/1 ML DISP.SYRIN SUBCUT SCH ×2 (10:24→21:08)
[2018-11-19] MEDS: CYANOCOBALAMIN (VITAMIN B-12) INJ 1000 MCG/1 ML VIAL IM SCH (13:27)
--- NOTE | 2018-11-19 17:03 | PDOC PROGRESS REPORT ---
Subjective Progress Note for:: 11/19/18 Subjective:: No adverse events overnight. No new complaints. Vital signs been stable. Eating and drinking without difficulty. She says her energy level is low. She is complaining of some pain in her right leg but her leg exam is completely unremarkable. Reason For Visit: DVT,ANEMIA Physical Exam Vital Signs: Temp Pulse Resp BP Pulse Ox 98.1 F 68 16 94/60 L 100 11/19/18 11:24 11/19/18 14:00 11/19/18 11:24 11/19/18 11:24 11/19/18 11:24 Intake & Output 11/18/18 11/19/18 11/20/18 06:59 06:59 06:59 Intake Total 1950 1827 591 Output Total 400 Balance 1550 1827 591 Weight 89.8 kg 91.3 kg General appearance: PRESENT: no acute distress, cooperative, disheveled, obese Respiratory exam: PRESENT: clear to auscultation na, symmetrical, unlabored. ABSENT: accessory muscle use, crackles, prolonged expiratory phas, rhonchi, tachypnea, wheezes Cardiovascular exam: PRESENT: RRR, +S1, +S2 Pulses: PRESENT: normal carotid pulses Vascular exam: PRESENT: normal capillary refill GI/Abdominal exam: PRESENT: normal bowel sounds, soft. ABSENT: distended, guarding, rebound, tenderness Extremities exam: PRESENT: +1 edema - Right leg. ABSENT: clubbing, pedal edema Musculoskeletal exam: PRESENT: normal inspection. ABSENT: deformity Neurological exam: PRESENT: alert, awake, oriented to person, oriented to place, oriented to time, oriented to situation Psychiatric exam: PRESENT: appropriate affect, normal mood Skin exam: PRESENT: dry, warm Results Laboratory Results: 11/19/18 08:47 11/19/18 08:47 11/19/18 11/19/18 08:47 08:47 WBC 2.2 L RBC 2.12 L Hgb 8.0 L Hct 22.3 L MCV 105 H MCH 37.6 H MCHC 35.6 RDW 33.3 H Plt Count 116 L Sodium 142.0 Potassium 3.8 Chloride 106 Carbon Dioxide 28 Anion Gap 8 BUN 4 L Creatinine 0.60 Est GFR ( Amer) > 60 Est GFR (Non-Af Amer) > 60 Glucose 88 Calcium 8.2 L 11/17/18 14:46 Troponin I < 0.012 Impressions: Venous Doppler Study 11/17/18 14:39 IMPRESSION: INCOMPLETELY OCCLUSIVE HYPOECHOIC ACUTE CLOT IN THE RIGHT POPLITEAL VEIN Chest/Abdomen CTA 11/17/18 14:43 IMPRESSION: NORMAL CTA OF THE CHEST. NO PULMONARY EMBOLI. Assessment and Plan - Diagnosis (1) DVT (deep venous thrombosis) Qualifiers: DVT location: lower extremity Affected thrombotic vein of extremity: popliteal Chronicity: acute Laterality: right Qualified Code(s): I82.431 - Acute embolism and thrombosis of right popliteal vein Is this a current diagnosis for this admission?: Yes Plan: She is on Lovenox. We have started her on Coumadin. She will stay on Coumadin for at least 5 days, and if her INR is not therapeutic after 5 days she will stay on Lovenox until her INR is 2. (2) Anemia Qualifiers: Anemia type: B12 deficiency Vitamin B12 deficiency anemia type: other dietary B12 deficiency Qualified Code(s): D51.3 - Other dietary vitamin B12 deficiency anemia Is this a current diagnosis for this admission?: Yes Plan: B12 injections have been ordered. She will follow-up to get these done as an outpatient with hematology, along with her anticoagulation. - Time Time Spent with patient: 15-24 minutes
[2018-11-19] MEDS: WARFARIN SODIUM 5 MG TABLET PO SCH (21:08)
[2018-11-19] MEDS: MELATONIN 5 MG TABLET PO SCH (22:30)
[2018-11-20 02:52] LABS: APPEARANCE,URINE CLEAR; BILIRUBIN,URINE NEGATIVE (NEGATIVE); COLOR,URINE STRAW; GLUCOSE, URINE NEGATIVE (NEGATIVE); KETONES,URINE NEGATIVE (NEGATIVE); LEUKOCYTE ESTERASE,URINE NEGATIVE (NEGATIVE); NITRITE,URINE NEGATIVE (NEGATIVE); PROTEIN,URINE NEGATIVE (NEGATIVE); URINE SPECIFIC GRAVITY 1.005
[2018-11-20] MEDS: OXYCODONE-ACETAMINOPHEN 5-325 MG TABLET PO PRN ×5 (03:34→21:11)
[2018-11-20 06:34] LABS: INTERNATIONAL RATION (INR) 1.13; PROTHROMBIN TIME 15.1 SEC (11.4-15.4)
[2018-11-20 06:49] LABS: ANION GAP 5 (5-19); BLOOD UREA NITROGEN 4 mg/dL (7-20); CALCIUM 8.5 mg/dL (8.4-10.2); CARBON DIOXIDE 29 mmol/L (22-30); CHLORIDE 107 mmol/L (98-107); GLUCOSE 94 mg/dL (75-110); POTASSIUM 3.9 mmol/L (3.6-5.0); SODIUM 140.7 mmol/L (137-145)
[2018-11-20] MEDS: ONDANSETRON 4 MG TAB.RAPDIS PO PRN ×3 (08:28→16:56)
[2018-11-20 09:55] LABS: HEMATOCRIT 21.1 % (36.0-47.0); MEAN CORPUSCULAR HGB CONC 35.7 g/dL (32.0-36.0); MEAN CORPUSCULAR VOLUME 106 fl (80-97); RED BLOOD COUNT 1.99 10^6/uL (3.72-5.28); RED CELL DISTRIBUTION WIDTH 31.5 % (11.5-14.0); WHITE BLOOD COUNT 2.9 10^3/uL (4.0-10.5)
[2018-11-20 10:42] LABS: ABSOLUTE LYMPHOCYTES# (MANUAL) 1.2 10^3/uL (0.5-4.7); ABSOLUTE MONOCYTES # (MANUAL) 0.1 10^3/uL (0.1-1.4); ABSOLUTE NEUTROPHILS# (MANUAL) 1.6 10^3/uL (1.7-8.2); BASOPHILS % (MANUAL) 0 % (0-2); EOSINOPHILS % (MANUAL) 2 % (0-6); LYMPHOCYTES % (MANUAL) 41 % (13-45); MONOCYTES % (MANUAL) 2 % (3-13); SEGMENTED NEUTROPHILS % (MAN) 55 % (42-78); TOTAL CELLS COUNTED 100
[2018-11-20 11:13] LABS: ANISOCYTOSIS 4+; OVALOCYTES 2+; POIKILOCYTOSIS 2+; POLYCHROMASIA SLIGHT; TEAR DROP CELLS 1+
[2018-11-20 11:14] LABS: SCHISTOCYTES SLIGHT
[2018-11-20 11:15] LABS: PLATELET COUNT 90 10^3/uL (150-450)
[2018-11-20 11:21] LABS: HEMOGLOBIN 7.5 g/dL (12.0-15.5); PLATELET COMMENT DECREASED
[2018-11-20] MEDS: FAMOTIDINE 20 MG TABLET PO SCH ×2 (12:39→21:13)
[2018-11-20] MEDS: CYANOCOBALAMIN (VITAMIN B-12) INJ 1000 MCG/1 ML VIAL IM SCH (12:40)
[2018-11-20] MEDS: ENOXAPARIN SODIUM INJ 100 MG/1 ML DISP.SYRIN SUBCUT SCH ×2 (12:40→21:15)
[2018-11-20] MEDS: DOCUSATE SODIUM 100 MG CAPSULE PO SCH (12:47)
--- NOTE | 2018-11-20 13:06 | PDOC PROGRESS REPORT ---
Subjective Progress Note for:: 11/20/18 Subjective:: Patient was seen on morning rounds. She is still complaining of pain in her right leg. No other concerns today. Reason For Visit: DVT,ANEMIA Physical Exam Vital Signs: Temp Pulse Resp BP Pulse Ox 98.0 F 71 16 105/65 100 11/20/18 11:29 11/20/18 11:29 11/20/18 11:29 11/20/18 11:29 11/20/18 11:29 Intake & Output 11/19/18 11/20/18 11/21/18 06:59 06:59 06:59 Intake Total 1827 2428 355 Output Total 650 Balance 1827 1778 355 Weight 91.3 kg 93 kg General appearance: PRESENT: well-developed, well-nourished Head exam: PRESENT: normocephalic Respiratory exam: PRESENT: unlabored Extremities exam: ABSENT: pedal edema Neurological exam: PRESENT: alert, awake Psychiatric exam: PRESENT: appropriate affect Skin exam: PRESENT: normal color Results Laboratory Results: 11/20/18 05:35 11/20/18 05:35 11/19/18 11/20/18 11/20/18 21:50 05:35 05:35 WBC 2.9 L RBC 1.99 L Hgb 7.5 L Hct 21.1 L MCV 106 H MCH 38.0 H MCHC 35.7 RDW 31.5 H Plt Count 90 L Seg Neutrophils % Not Reportable Lymphocytes % Not Reportable Monocytes % Not Reportable Eosinophils % Not Reportable Basophils % Not Reportable Absolute Neutrophils Not Reportable Absolute Lymphocytes Not Reportable Absolute Monocytes Not Reportable Absolute Eosinophils Not Reportable Absolute Basophils Not Reportable Sodium 140.7 Potassium 3.9 Chloride 107 Carbon Dioxide 29 Anion Gap 5 BUN 4 L Creatinine 0.59 Est GFR ( Amer) > 60 Est GFR (Non-Af Amer) > 60 Glucose 94 Calcium 8.5 Urine Color STRAW Urine Appearance CLEAR Urine pH 8.0 Ur Specific [place] 1.005 Urine Protein NEGATIVE Urine Glucose (UA) NEGATIVE Urine Ketones NEGATIVE Urine Blood NEGATIVE Urine Nitrite NEGATIVE Ur Leukocyte Esterase NEGATIVE Urine WBC (Auto) 0 Urine RBC (Auto) 0 11/17/18 14:46 Troponin I < 0.012 Impressions: Venous Doppler Study 11/17/18 14:39 IMPRESSION: INCOMPLETELY OCCLUSIVE HYPOECHOIC ACUTE CLOT IN THE RIGHT POPLITEAL VEIN Chest/Abdomen CTA 11/17/18 14:43 IMPRESSION: NORMAL CTA OF THE CHEST. NO PULMONARY EMBOLI. Assessment & Plan - Diagnosis (1) DVT (deep venous thrombosis) Qualifiers: DVT location: lower extremity Affected thrombotic vein of extremity: popliteal Chronicity: acute Laterality: right Qualified Code(s): I82.431 - Acute embolism and thrombosis of right popliteal vein Is this a current diagnosis for this admission?: Yes Plan: on Lovenox, transitioning to warfarin. Patient has failed Xeralto in the past. Her hypercoag work-up was negative in the past. (2) Anemia Qualifiers: Anemia type: B12 deficiency Vitamin B12 deficiency anemia type: other dietary B12 deficiency Qualified Code(s): D51.3 - Other dietary vitamin B12 deficiency anemia Is this a current diagnosis for this admission?: Yes Plan: Currently receiving B12 injections. It may take a few days before HGB is able to respond to these. Hold off on transfusion today. Repeat CBC tomorrow.
[2018-11-20] MEDS: CELECOXIB 100 MG CAPSULE PO SCH ×2 (15:57→20:29)
--- NOTE | 2018-11-20 17:21 | PDOC PROGRESS REPORT ---
Subjective Progress Note for:: 11/20/18 Subjective:: No adverse events overnight. No new complaints. Vital signs been stable. She still complains of just some general malaise. Some Celebrex has been started for the leg pain she says she is having. No evidence of any recurrence of any swelling. Reason For Visit: DVT,ANEMIA Physical Exam Vital Signs: Temp Pulse Resp BP Pulse Ox 97.8 F 65 16 105/71 100 11/20/18 15:01 11/20/18 15:01 11/20/18 15:01 11/20/18 15:01 11/20/18 15:01 Intake & Output 11/19/18 11/20/18 11/21/18 06:59 06:59 06:59 Intake Total 1827 2428 355 Output Total 650 Balance 1827 1778 355 Weight 91.3 kg 93 kg General appearance: PRESENT: no acute distress, cooperative, disheveled, obese Respiratory exam: PRESENT: clear to auscultation na, symmetrical, unlabored. ABSENT: accessory muscle use, crackles, prolonged expiratory phas, rhonchi, tachypnea, wheezes Cardiovascular exam: PRESENT: RRR, +S1, +S2 Pulses: PRESENT: normal carotid pulses Vascular exam: PRESENT: normal capillary refill GI/Abdominal exam: PRESENT: normal bowel sounds, soft. ABSENT: distended, guarding, rebound, tenderness Extremities exam: PRESENT: +1 edema - Right leg. ABSENT: clubbing, pedal edema Musculoskeletal exam: PRESENT: normal inspection. ABSENT: deformity Neurological exam: PRESENT: alert, awake, oriented to person, oriented to place, oriented to time, oriented to situation Psychiatric exam: PRESENT: appropriate affect, normal mood Skin exam: PRESENT: dry, warm Results Laboratory Results: 11/20/18 05:35 11/20/18 05:35 11/19/18 11/20/18 11/20/18 21:50 05:35 05:35 WBC 2.9 L RBC 1.99 L Hgb 7.5 L Hct 21.1 L MCV 106 H MCH 38.0 H MCHC 35.7 RDW 31.5 H Plt Count 90 L Seg Neutrophils % Not Reportable Lymphocytes % Not Reportable Monocytes % Not Reportable Eosinophils % Not Reportable Basophils % Not Reportable Absolute Neutrophils Not Reportable Absolute Lymphocytes Not Reportable Absolute Monocytes Not Reportable Absolute Eosinophils Not Reportable Absolute Basophils Not Reportable Sodium 140.7 Potassium 3.9 Chloride 107 Carbon Dioxide 29 Anion Gap 5 BUN 4 L Creatinine 0.59 Est GFR ( Amer) > 60 Est GFR (Non-Af Amer) > 60 Glucose 94 Calcium 8.5 Urine Color STRAW Urine Appearance CLEAR Urine pH 8.0 Ur Specific [place] 1.005 Urine Protein NEGATIVE Urine Glucose (UA) NEGATIVE Urine Ketones NEGATIVE Urine Blood NEGATIVE Urine Nitrite NEGATIVE Ur Leukocyte Esterase NEGATIVE Urine WBC (Auto) 0 Urine RBC (Auto) 0 11/17/18 14:46 Troponin I < 0.012 Impressions: Venous Doppler Study 11/17/18 14:39 IMPRESSION: INCOMPLETELY OCCLUSIVE HYPOECHOIC ACUTE CLOT IN THE RIGHT POPLITEAL VEIN Chest/Abdomen CTA 11/17/18 14:43 IMPRESSION: NORMAL CTA OF THE CHEST. NO PULMONARY EMBOLI. Assessment and Plan - Diagnosis (1) DVT (deep venous thrombosis) Qualifiers: DVT location: lower extremity Affected thrombotic vein of extremity: popliteal Chronicity: acute Laterality: right Qualified Code(s): I82.431 - Acute embolism and thrombosis of right popliteal vein Is this a current diagnosis for this admission?: Yes Plan: She is on Lovenox. We have started her on Coumadin. She will stay on Coumadin for at least 5 days, and if her INR is not therapeutic after 5 days she will stay on Lovenox until her INR is 2. (2) Anemia Qualifiers: Anemia type: B12 deficiency Vitamin B12 deficiency anemia type: other dietary B12 deficiency Qualified Code(s): D51.3 - Other dietary vitamin B12 deficiency anemia Is this a current diagnosis for this admission?: Yes Plan: B12 injections have been ordered. She will follow-up to get these done as an outpatient with hematology, along with her anticoagulation. - Time Time Spent with patient: 15-24 minutes
[2018-11-20 17:36] LABS: PROTEIN C ANTIGEN 73 % (60-150)
[2018-11-20 19:05] LABS: ANTICARDIOLIPIN IGA AB <9 APL U/mL (0-11); ANTICARDIOLIPIN IGG AB <9 GPL U/mL (0-14); ANTICARDIOLIPIN IGM AB <9 MPL U/mL (0-12); ANTITHROMBIN III ACTIVITY 98 % (75-135); FACTOR IX ACTIVITY 93 % (60-177); PROTEIN C ACTIVITY 80 % (73-180); PROTEIN S FREE 77 % (57-157); PROTEIN S FUNCTIONAL 48 % (63-140); PROTEIN S TOTAL 63 % (60-150)
[2018-11-20] MEDS: WARFARIN SODIUM 5 MG TABLET PO SCH (21:14)
[2018-11-20] MEDS: MELATONIN 5 MG TABLET PO SCH (21:14)
[2018-11-21] MEDS: OXYCODONE-ACETAMINOPHEN 5-325 MG TABLET PO PRN ×4 (03:48→17:21)
--- NOTE | 2018-11-21 08:06 | PDOC PROGRESS REPORT ---
Subjective Progress Note for:: 11/21/18 Subjective:: Patient states she was able to walk in [place] yesterday. It was very difficult and took everything out of her. Her pain is still the same, but she did not have any side effects from the celebrex. No new complaints. ROS: No dyspnea. No nausea. Reason For Visit: DVT,ANEMIA Physical Exam Vital Signs: Temp Pulse Resp BP Pulse Ox 97.8 F 57 L 15 110/70 100 11/21/18 03:38 11/21/18 07:00 11/21/18 03:38 11/21/18 03:38 11/21/18 03:38 Intake & Output 11/20/18 11/21/18 11/22/18 06:59 06:59 06:59 Intake Total 2428 745 Output Total 650 Balance 1778 745 Weight 93 kg 96.9 kg General appearance: PRESENT: well-developed, well-nourished Head exam: PRESENT: normocephalic Respiratory exam: PRESENT: unlabored Extremities exam: ABSENT: pedal edema Neurological exam: PRESENT: alert, awake Psychiatric exam: PRESENT: appropriate affect Skin exam: PRESENT: normal color Results Laboratory Results: 11/20/18 05:35 11/20/18 05:35 11/20/18 05:35 WBC 2.9 L RBC 1.99 L Hgb 7.5 L Hct 21.1 L MCV 106 H MCH 38.0 H MCHC 35.7 RDW 31.5 H Plt Count 90 L Seg Neutrophils % Not Reportable Lymphocytes % Not Reportable Monocytes % Not Reportable Eosinophils % Not Reportable Basophils % Not Reportable Absolute Neutrophils Not Reportable Absolute Lymphocytes Not Reportable Absolute Monocytes Not Reportable Absolute Eosinophils Not Reportable Absolute Basophils Not Reportable 11/17/18 14:46 Troponin I < 0.012 Impressions: Venous Doppler Study 11/17/18 14:39 IMPRESSION: INCOMPLETELY OCCLUSIVE HYPOECHOIC ACUTE CLOT IN THE RIGHT POPLITEAL VEIN Chest/Abdomen CTA 11/17/18 14:43 IMPRESSION: NORMAL CTA OF THE CHEST. NO PULMONARY EMBOLI. Assessment & Plan - Diagnosis (1) DVT (deep venous thrombosis) Qualifiers: DVT location: lower extremity Affected thrombotic vein of extremity: popliteal Chronicity: acute Laterality: right Qualified Code(s): I82.431 - Acute embolism and thrombosis of right popliteal vein Is this a current diagnosis for this admission?: Yes Plan: Lovenox to coumadin. Await INR 2.0 then stop Lovenox. Home with coumadin and follow-up in my office for continued monitoring. Continue Celebrex for pain. (2) Anemia Qualifiers: Anemia type: B12 deficiency Vitamin B12 deficiency anemia type: other dietary B12 deficiency Qualified Code(s): D51.3 - Other dietary vitamin B12 deficiency anemia Is this a current diagnosis for this admission?: Yes Plan: Receiving B12 injections daily. Will continue these monthly as outpatient. Await today's CBC, if <8 consider blood transfusion. - Plan Summary Plan Summary: Dr. Tucker will be available over the weekend if needed. I will return to see her Saturday if she is still here.
[2018-11-21 08:49] LABS: HEMATOCRIT 23.1 % (36.0-47.0); MEAN CORPUSCULAR HEMOGLOBIN 37.8 pg (27.0-33.4); MEAN CORPUSCULAR HGB CONC 34.8 g/dL (32.0-36.0); MEAN CORPUSCULAR VOLUME 108 fl (80-97); RED BLOOD COUNT 2.13 10^6/uL (3.72-5.28); RED CELL DISTRIBUTION WIDTH 31.3 % (11.5-14.0); WHITE BLOOD COUNT 2.6 10^3/uL (4.0-10.5)
[2018-11-21 08:50] LABS: INTERNATIONAL RATION (INR) 1.28; PROTHROMBIN TIME 16.6 SEC (11.4-15.4)
[2018-11-21] MEDS: ONDANSETRON 4 MG TAB.RAPDIS PO PRN (08:52)
[2018-11-21] MEDS: ENOXAPARIN SODIUM INJ 100 MG/1 ML DISP.SYRIN SUBCUT SCH ×2 (08:54→22:08)
[2018-11-21] MEDS: CELECOXIB 100 MG CAPSULE PO SCH ×2 (08:54→17:21)
[2018-11-21] MEDS: DOCUSATE SODIUM 100 MG CAPSULE PO SCH (08:54)
[2018-11-21] MEDS: FAMOTIDINE 20 MG TABLET PO SCH ×2 (08:55→22:08)
[2018-11-21] MEDS: CYANOCOBALAMIN (VITAMIN B-12) INJ 1000 MCG/1 ML VIAL IM SCH (08:55)
[2018-11-21 09:06] LABS: PLATELET COUNT 102 10^3/uL (150-450)
--- NOTE | 2018-11-21 17:00 | PDOC PROGRESS REPORT ---
Subjective Progress Note for:: 11/21/18 Subjective:: No adverse events overnight. No new complaints. Vital signs are stable. She has been up ambulating in the hallway without any trouble. Eating and drinking without difficulty. Reason For Visit: DVT,ANEMIA Physical Exam Vital Signs: Temp Pulse Resp BP Pulse Ox 98.1 F 70 16 104/58 L 100 11/21/18 15:41 11/21/18 15:41 11/21/18 15:41 11/21/18 15:41 11/21/18 15:41 Intake & Output 11/20/18 11/21/18 11/22/18 06:59 06:59 06:59 Intake Total 2428 745 527 Output Total 650 Balance 1778 745 527 Weight 93 kg 96.9 kg General appearance: PRESENT: no acute distress, cooperative, disheveled, obese Respiratory exam: PRESENT: clear to auscultation na, symmetrical, unlabored. ABSENT: accessory muscle use, crackles, prolonged expiratory phas, rhonchi, tachypnea, wheezes Cardiovascular exam: PRESENT: RRR, +S1, +S2 Pulses: PRESENT: normal carotid pulses Vascular exam: PRESENT: normal capillary refill GI/Abdominal exam: PRESENT: normal bowel sounds, soft. ABSENT: distended, guarding, rebound, tenderness Extremities exam: PRESENT: +1 edema - Right leg. ABSENT: clubbing, pedal edema Musculoskeletal exam: PRESENT: normal inspection. ABSENT: deformity Neurological exam: PRESENT: alert, awake, oriented to person, oriented to place, oriented to time, oriented to situation Psychiatric exam: PRESENT: appropriate affect, normal mood Skin exam: PRESENT: dry, warm Results Laboratory Results: 11/21/18 08:32 11/20/18 05:35 11/21/18 08:32 WBC 2.6 L RBC 2.13 L Hgb 8.0 L Hct 23.1 L MCV 108 H MCH 37.8 H MCHC 34.8 RDW 31.3 H Plt Count 102 L 11/17/18 14:46 Troponin I < 0.012 Impressions: Venous Doppler Study 11/17/18 14:39 IMPRESSION: INCOMPLETELY OCCLUSIVE HYPOECHOIC ACUTE CLOT IN THE RIGHT POPLITEAL VEIN Chest/Abdomen CTA 11/17/18 14:43 IMPRESSION: NORMAL CTA OF THE CHEST. NO PULMONARY EMBOLI. Assessment and Plan - Diagnosis (1) DVT (deep venous thrombosis) Qualifiers: DVT location: lower extremity Affected thrombotic vein of extremity: popliteal Chronicity: acute Laterality: right Qualified Code(s): I82.431 - Acute embolism and thrombosis of right popliteal vein Is this a current diagnosis for this admission?: Yes Plan: She is on Lovenox. We have started her on Coumadin. She will stay on Coumadin for at least 5 days, and if her INR is not therapeutic after 5 days she will stay on Lovenox until her INR is 2. (2) Anemia Qualifiers: Anemia type: B12 deficiency Vitamin B12 deficiency anemia type: other dietary B12 deficiency Qualified Code(s): D51.3 - Other dietary vitamin B12 deficiency anemia Is this a current diagnosis for this admission?: Yes Plan: B12 injections have been ordered. She will follow-up to get these done as an outpatient with hematology, along with her anticoagulation. Hemoglobin up to 8 today, platelets have come up as well. - Time Time Spent with patient: 15-24 minutes
[2018-11-21] MEDS ORDERED: MORPHINE SULFATE 10 MG/ML INJ IV PRN ×3 (21:37→21:39)
[2018-11-21] MEDS: WARFARIN SODIUM 5 MG TABLET PO SCH (22:08)
[2018-11-21] MEDS: MELATONIN 5 MG TABLET PO SCH (22:08)
[2018-11-22] MEDS: OXYCODONE-ACETAMINOPHEN 5-325 MG TABLET PO PRN ×2 (00:59→06:24)
[2018-11-22 06:55] LABS: INTERNATIONAL RATION (INR) 1.39; PROTHROMBIN TIME 17.8 SEC (11.4-15.4)
[2018-11-22] MEDS: FAMOTIDINE 20 MG TABLET PO SCH ×2 (09:32→21:16)
[2018-11-22] MEDS: CELECOXIB 100 MG CAPSULE PO SCH ×2 (09:33→17:44)
[2018-11-22] MEDS: CYANOCOBALAMIN (VITAMIN B-12) INJ 1000 MCG/1 ML VIAL IM SCH (09:33)
[2018-11-22] MEDS: DOCUSATE SODIUM 100 MG CAPSULE PO SCH (09:33)
[2018-11-22] MEDS: ENOXAPARIN SODIUM INJ 100 MG/1 ML DISP.SYRIN SUBCUT SCH ×2 (09:42→21:17)
[2018-11-22 12:55] LABS: APPEARANCE,URINE CLEAR; BILIRUBIN,URINE NEGATIVE (NEGATIVE); COLOR,URINE YELLOW; GLUCOSE, URINE NEGATIVE (NEGATIVE); KETONES,URINE NEGATIVE (NEGATIVE); LEUKOCYTE ESTERASE,URINE NEGATIVE (NEGATIVE); NITRITE,URINE NEGATIVE (NEGATIVE); PROTEIN,URINE NEGATIVE (NEGATIVE); URINE SPECIFIC GRAVITY 1.008
[2018-11-22] MEDS: HYDROCODONE/ACETAMINOPHEN 5-325 MG TABLET PO PRN (17:44)
--- NOTE | 2018-11-22 18:31 | PDOC PROGRESS REPORT ---
Subjective Progress Note for:: 11/22/18 Subjective:: No adverse events overnight. No new complaints. Vital signs are stable. She has been up ambulating in the hallway without any trouble. Eating and drinking without difficulty. She said the morphine that got ordered for her last night actually made her sick and she does not want to take it anymore. Reason For Visit: DVT,ANEMIA Physical Exam Vital Signs: Temp Pulse Resp BP Pulse Ox 98.0 F 74 16 101/62 100 11/22/18 15:59 11/22/18 15:59 11/22/18 15:59 11/22/18 15:59 11/22/18 15:59 Intake & Output 11/21/18 11/22/18 11/23/18 06:59 06:59 06:59 Intake Total 745 1637 1141 Output Total 600 Balance 745 1637 541 Weight 96.9 kg 93 kg General appearance: PRESENT: no acute distress, cooperative, disheveled, obese Respiratory exam: PRESENT: clear to auscultation na, symmetrical, unlabored. ABSENT: accessory muscle use, crackles, prolonged expiratory phas, rhonchi, tachypnea, wheezes Cardiovascular exam: PRESENT: RRR, +S1, +S2 Pulses: PRESENT: normal carotid pulses Vascular exam: PRESENT: normal capillary refill GI/Abdominal exam: PRESENT: normal bowel sounds, soft. ABSENT: distended, guarding, rebound, tenderness Extremities exam: ABSENT: clubbing, pedal edema, leg edema, tenderness Musculoskeletal exam: PRESENT: normal inspection. ABSENT: deformity Neurological exam: PRESENT: alert, awake, oriented to person, oriented to place, oriented to time, oriented to situation Psychiatric exam: PRESENT: appropriate affect, normal mood Skin exam: PRESENT: dry, warm Results Laboratory Results: 11/21/18 08:32 11/20/18 05:35 11/21/18 11/22/18 11:48 06:42 Urine Color YELLOW Urine Appearance CLEAR Urine pH 7.0 Ur Specific [place] 1.008 Urine Protein NEGATIVE Urine Glucose (UA) NEGATIVE Urine Ketones NEGATIVE Urine Blood NEGATIVE Urine Nitrite NEGATIVE Ur Leukocyte Esterase NEGATIVE Urine WBC (Auto) 0 Stool Occult Blood NEGATIVE 11/17/18 14:46 Troponin I < 0.012 Impressions: Venous Doppler Study 11/17/18 14:39 IMPRESSION: INCOMPLETELY OCCLUSIVE HYPOECHOIC ACUTE CLOT IN THE RIGHT POPLITEAL VEIN Chest/Abdomen CTA 11/17/18 14:43 IMPRESSION: NORMAL CTA OF THE CHEST. NO PULMONARY EMBOLI. Assessment and Plan - Diagnosis (1) DVT (deep venous thrombosis) Qualifiers: DVT location: lower extremity Affected thrombotic vein of extremity: po pliteal Chronicity: acute Laterality: right Qualified Code(s): I82.431 - Acute embolism and thrombosis of right popliteal vein Is this a current diagnosis for this admission?: Yes Plan: She is on Lovenox. We have started her on Coumadin. She will stay on Coumadin for at least 5 days, and if her INR is not therapeutic after 5 days she will stay on Lovenox until her INR is 2. Had to increase her Coumadin dose to 7.5 mg at bedtime because her INR was not really trending up very much after 4 days of Coumadin. (2) Anemia Qualifiers: Anemia type: B12 deficiency Vitamin B12 deficiency anemia type: other dietary B12 deficiency Qualified Code(s): D51.3 - Other dietary vitamin B12 deficiency anemia Is this a current diagnosis for this admission?: Yes Plan: B12 injections have been ordered. She will follow-up to get these done as an outpatient with hematology, along with her anticoagulation. Hemoglobin up to 8 today, platelets have come up as well. - Time Time Spent with patient: 15-24 minutes
[2018-11-22] MEDS: MELATONIN 5 MG TABLET PO SCH (21:17)
[2018-11-22] MEDS: WARFARIN SODIUM 7.5 MG TABLET PO SCH (21:17)
[2018-11-23] MEDS: HYDROCODONE/ACETAMINOPHEN 5-325 MG TABLET PO PRN ×4 (00:05→18:25)
[2018-11-23 07:25] LABS: INTERNATIONAL RATION (INR) 1.57; PROTHROMBIN TIME 19.6 SEC (11.4-15.4)
[2018-11-23] MEDS: FAMOTIDINE 20 MG TABLET PO SCH ×2 (09:30→21:44)
[2018-11-23] MEDS: ENOXAPARIN SODIUM INJ 100 MG/1 ML DISP.SYRIN SUBCUT SCH ×2 (09:30→21:42)
[2018-11-23] MEDS: CELECOXIB 100 MG CAPSULE PO SCH ×2 (09:30→18:20)
[2018-11-23] MEDS: DOCUSATE SODIUM 100 MG CAPSULE PO SCH (09:30)
--- NOTE | 2018-11-23 16:28 | PDOC PROGRESS REPORT ---
Subjective Progress Note for:: 11/23/18 Subjective:: No adverse events overnight. No new complaints. Vital signs are stable. She has been up ambulating in the hallway without any trouble. Eating and drinking without difficulty. No substantial complaints of any pain or discomfort. Reason For Visit: DVT,ANEMIA Physical Exam Vital Signs: Temp Pulse Resp BP Pulse Ox 98.4 F 76 18 101/57 L 98 11/23/18 12:20 11/23/18 14:00 11/23/18 12:20 11/23/18 12:20 11/23/18 12:20 Intake & Output 11/22/18 11/23/18 11/24/18 06:59 06:59 06:59 Intake Total 1637 1441 354 Output Total 600 Balance 1637 841 354 Weight 93 kg General appearance: PRESENT: no acute distress, cooperative, disheveled, obese Respiratory exam: PRESENT: clear to auscultation na, symmetrical, unlabored. ABSENT: accessory muscle use, crackles, prolonged expiratory phas, rhonchi, tachypnea, wheezes Cardiovascular exam: PRESENT: RRR, +S1, +S2 Pulses: PRESENT: normal carotid pulses Vascular exam: PRESENT: normal capillary refill GI/Abdominal exam: PRESENT: normal bowel sounds, soft. ABSENT: distended, guarding, rebound, tenderness Extremities exam: ABSENT: clubbing, pedal edema, leg edema, tenderness Musculoskeletal exam: PRESENT: normal inspection. ABSENT: deformity Neurological exam: PRESENT: alert, awake, oriented to person, oriented to place, oriented to time, oriented to situation Psychiatric exam: PRESENT: appropriate affect, normal mood Skin exam: PRESENT: dry, warm Results Laboratory Results: 11/21/18 08:32 11/20/18 05:35 11/17/18 14:46 Troponin I < 0.012 Impressions: Venous Doppler Study 11/17/18 14:39 IMPRESSION: INCOMPLETELY OCCLUSIVE HYPOECHOIC ACUTE CLOT IN THE RIGHT POPLITEAL VEIN Chest/Abdomen CTA 11/17/18 14:43 IMPRESSION: NORMAL CTA OF THE CHEST. NO PULMONARY EMBOLI. Assessment and Plan - Diagnosis (1) DVT (deep venous thrombosis) Qualifiers: DVT location: lower extremity Affected thrombotic vein of extremity: popliteal Chronicity: acute Laterality: right Qualified Code(s): I82.431 - Acute embolism and thrombosis of right popliteal vein Is this a current diagnosis for this admission?: Yes Plan: She is on Lovenox. We have started her on Coumadin. She will stay on Coumadin for at least 5 days, and if her INR is not therapeutic after 5 days she will stay on Lovenox until her INR is 2. Had to increase her Coumadin dose to 7.5 mg at bedtime because her INR was not really trending up very much after 4 days of Coumadin. Increasing the dose has helped her INR to come up a bit more. (2) Anemia Qualifiers: Anemia type: B12 deficiency Vitamin B12 deficiency anemia type: other dietary B12 deficiency Qualified Code(s): D51.3 - Other dietary vitamin B12 deficiency anemia Is this a current diagnosis for this admission?: Yes Plan: B12 injections have been ordered. She will follow-up to get these done as an outpatient with hematology, along with her anticoagulation. Hemoglobin up to 8 today, platelets have come up as well. - Time Time Spent with patient: 15-24 minutes
[2018-11-23] MEDS ORDERED: BISACODYL 5 MG TABEC PO ONE (18:30)
[2018-11-23] MEDS: WARFARIN SODIUM 7.5 MG TABLET PO SCH (21:48)
[2018-11-23] MEDS: MELATONIN 5 MG TABLET PO SCH (23:20)
[2018-11-24] MEDS: HYDROCODONE/ACETAMINOPHEN 5-325 MG TABLET PO PRN ×4 (00:45→19:24)
[2018-11-24] MEDS: MELATONIN 5 MG TABLET PO SCH (00:48)
[2018-11-24 06:47] LABS: HEMATOCRIT 26.4 % (36.0-47.0); HEMOGLOBIN 8.8 g/dL (12.0-15.5); MEAN CORPUSCULAR HEMOGLOBIN 36.1 pg (27.0-33.4); MEAN CORPUSCULAR HGB CONC 33.4 g/dL (32.0-36.0); MEAN CORPUSCULAR VOLUME 108 fl (80-97); PLATELET COUNT 134 10^3/uL (150-450); RED BLOOD COUNT 2.43 10^6/uL (3.72-5.28); RED CELL DISTRIBUTION WIDTH 29.4 % (11.5-14.0); WHITE BLOOD COUNT 2.7 10^3/uL (4.0-10.5)
[2018-11-24 06:53] LABS: INTERNATIONAL RATION (INR) 1.86; PROTHROMBIN TIME 22.3 SEC (11.4-15.4)
[2018-11-24 08:19] LABS: APPEARANCE,URINE CLEAR; BILIRUBIN,URINE NEGATIVE (NEGATIVE); COLOR,URINE YELLOW; GLUCOSE, URINE NEGATIVE (NEGATIVE); KETONES,URINE NEGATIVE (NEGATIVE); LEUKOCYTE ESTERASE,URINE NEGATIVE (NEGATIVE); NITRITE,URINE NEGATIVE (NEGATIVE); PROTEIN,URINE NEGATIVE (NEGATIVE); URINE SPECIFIC GRAVITY 1.011
--- NOTE | 2018-11-24 10:28 | PDOC PROGRESS REPORT ---
Subjective Progress Note for:: 11/24/18 Subjective:: Patient still complains of leg pain, worse behind her right knee and when walking. She did not like Percocet. She is receiving [place] but asks if she may add an additional Tylenol to this. ROS: No dyspnea. No constipation. Reason For Visit: DVT,ANEMIA Physical Exam Vital Signs: Temp Pulse Resp BP Pulse Ox 98.0 F 62 14 102/64 96 11/24/18 07:57 11/24/18 07:57 11/24/18 07:57 11/24/18 07:57 11/24/18 08:48 Intake & Output 11/23/18 11/24/18 11/25/18 06:59 06:59 06:59 Intake Total 1441 2136 Output Total 600 Balance 841 2136 Weight 92.6 kg General appearance: PRESENT: well-developed, well-nourished Head exam: PRESENT: normocephalic Respiratory exam: PRESENT: unlabored Extremities exam: ABSENT: pedal edema Neurological exam: PRESENT: alert, awake Psychiatric exam: PRESENT: appropriate affect Skin exam: PRESENT: normal color Results Laboratory Results: 11/24/18 06:10 11/20/18 05:35 11/24/18 11/24/18 11/24/18 06:10 08:00 08:38 WBC 2.7 L RBC 2.43 L Hgb 8.8 L Hct 26.4 L MCV 108 H MCH 36.1 H MCHC 33.4 RDW 29.4 H Plt Count 134 L Urine Color YELLOW Urine Appearance CLEAR Urine pH 6.0 Ur Specific [place] 1.011 Urine Protein NEGATIVE Urine Glucose (UA) NEGATIVE Urine Ketones NEGATIVE Urine Blood NEGATIVE Urine Nitrite NEGATIVE Ur Leukocyte Esterase NEGATIVE Stool Occult Blood NEGATIVE 11/17/18 14:46 Troponin I < 0.012 Impressions: Venous Doppler Study 11/17/18 14:39 IMPRESSION: INCOMPLETELY OCCLUSIVE HYPOECHOIC ACUTE CLOT IN THE RIGHT POPLITEAL VEIN Chest/Abdomen CTA 11/17/18 14:43 IMPRESSION: NORMAL CTA OF THE CHEST. NO PULMONARY EMBOLI. Assessment & Plan - Diagnosis (1) DVT (deep venous thrombosis) Qualifiers: DVT location: lower extremity Affected thrombotic vein of extremity: popliteal Chronicity: acute Laterality: right Qualified Code(s): I82.431 - Acute embolism and thrombosis of right popliteal vein Is this a current diagnosis for this admission?: Yes Plan: On Lovenox. Await INR >2.0 then stop Lovenox. (2) Anemia Qualifiers: Anemia type: B12 deficiency Vitamin B12 deficiency anemia type: other dietary B12 deficiency Qualified Code(s): D51.3 - Other dietary vitamin B12 deficiency anemia Is this a current diagnosis for this admission?: Yes Plan: Currently stable. Will arrange for further B12 injections in my office. - Plan Summary Plan Summary: I will sign off and see her in the office for follow-up. Please call with any questions. Please give Rx for Warfarin 2 mg (not 5 mg) tablets so that doses may be adjusted easily.
[2018-11-24] MEDS: FAMOTIDINE 20 MG TABLET PO SCH ×2 (10:30→21:44)
[2018-11-24] MEDS: CELECOXIB 100 MG CAPSULE PO SCH ×2 (10:30→18:19)
[2018-11-24] MEDS: DOCUSATE SODIUM 100 MG CAPSULE PO SCH (10:30)
[2018-11-24] MEDS: ENOXAPARIN SODIUM INJ 100 MG/1 ML DISP.SYRIN SUBCUT SCH ×2 (10:31→21:44)
[2018-11-24] MEDS: ACETAMINOPHEN 325 MG TABLET PO PRN ×2 (10:38→18:19)
--- NOTE | 2018-11-24 17:40 | PDOC PROGRESS REPORT ---
Subjective Progress Note for:: 11/24/18 Subjective:: No adverse events overnight. No new complaints. Vital signs are stable. She has been up ambulating in the hallway without any trouble. Eating and drinking without difficulty. No substantial complaints of any pain or discomfort. Reason For Visit: DVT,ANEMIA Physical Exam Vital Signs: Temp Pulse Resp BP Pulse Ox 97.8 F 65 16 112/78 100 11/24/18 16:25 11/24/18 16:25 11/24/18 16:25 11/24/18 16:25 11/24/18 16:26 Intake & Output 11/23/18 11/24/18 11/25/18 06:59 06:59 06:59 Intake Total 1441 2136 318 Output Total 600 Balance 841 2136 318 Weight 92.6 kg 92.6 kg General appearance: PRESENT: no acute distress, cooperative, disheveled, obese Respiratory exam: PRESENT: clear to auscultation na, symmetrical, unlabored. ABSENT: accessory muscle use, crackles, prolonged expiratory phas, rhonchi, tachypnea, wheezes Cardiovascular exam: PRESENT: RRR, +S1, +S2 Pulses: PRESENT: normal carotid pulses Vascular exam: PRESENT: normal capillary refill GI/Abdominal exam: PRESENT: normal bowel sounds, soft. ABSENT: distended, guarding, rebound, tenderness Extremities exam: ABSENT: clubbing, pedal edema, leg edema, tenderness Musculoskeletal exam: PRESENT: normal inspection. ABSENT: deformity Neurological exam: PRESENT: alert, awake, oriented to person, oriented to place, oriented to time, oriented to situation Psychiatric exam: PRESENT: appropriate affect, normal mood Skin exam: PRESENT: dry, warm Results Laboratory Results: 11/24/18 06:10 11/20/18 05:35 11/24/18 11/24/18 11/24/18 06:10 08:00 08:38 WBC 2.7 L RBC 2.43 L Hgb 8.8 L Hct 26.4 L MCV 108 H MCH 36.1 H MCHC 33.4 RDW 29.4 H Plt Count 134 L Urine Color YELLOW Urine Appearance CLEAR Urine pH 6.0 Ur Specific [place] 1.011 Urine Protein NEGATIVE Urine Glucose (UA) NEGATIVE Urine Ketones NEGATIVE Urine Blood NEGATIVE Urine Nitrite NEGATIVE Ur Leukocyte Esterase NEGATIVE Stool Occult Blood NEGATIVE 11/17/18 14:46 Troponin I < 0.012 Impressions: Venous Doppler Study 11/17/18 14:39 IMPRESSION: INCOMPLETELY OCCLUSIVE HYPOECHOIC ACUTE CLOT IN THE RIGHT POPLITEAL VEIN Chest/Abdomen CTA 11/17/18 14:43 IMPRESSION: NORMAL CTA OF THE CHEST. NO PULMONARY EMBOLI. Assessment and Plan - Diagnosis (1) DVT (deep venous thrombosis) Qualifiers: DVT location: lower extremity Affected thrombotic vein of extremity: popliteal Chronicity: acute Laterality: right Qualified Code(s): I82.431 - Acute embolism and thrombosis of right popliteal vein Is this a current diagnosis for this admission?: Yes Plan: She has been on Coumadin and Lovenox. She was on 5 mg of Coumadin for 4 days, and then for her fifth day she was bumped up to 7.5 mg. This is helped her INR to increase some. She is up to 1.86 a day. I believe she will be therapeutic by tomorrow and will not have to go home on Lovenox. (2) Anemia Qualifiers: Anemia type: B12 deficiency Vitamin B12 deficiency anemia type: other dietary B12 deficiency Qualified Code(s): D51.3 - Other dietary vitamin B12 deficiency anemia Is this a current diagnosis for this admission?: Yes Plan: B12 injections have been ordered. She will follow-up to get these done as an outpatient with hematology, along with her anticoagulation. Hemoglobin up to 8 today, platelets have come up as well. - Time Time Spent with patient: 15-24 minutes
[2018-11-24] MEDS: WARFARIN SODIUM 7.5 MG TABLET PO SCH (21:43)
[2018-11-24 22:50] LABS: APPEARANCE,URINE CLEAR; BILIRUBIN,URINE NEGATIVE (NEGATIVE); COLOR,URINE YELLOW; GLUCOSE, URINE NEGATIVE (NEGATIVE); KETONES,URINE NEGATIVE (NEGATIVE); LEUKOCYTE ESTERASE,URINE NEGATIVE (NEGATIVE); NITRITE,URINE NEGATIVE (NEGATIVE); PROTEIN,URINE NEGATIVE (NEGATIVE)
[2018-11-25] MEDS: MELATONIN 5 MG TABLET PO SCH ×2 (00:06→23:09)
[2018-11-25] MEDS: HYDROCODONE/ACETAMINOPHEN 5-325 MG TABLET PO PRN ×3 (01:46→14:16)
[2018-11-25 04:46] LABS: HEMATOCRIT 26.9 % (36.0-47.0); HEMOGLOBIN 8.8 g/dL (12.0-15.5); MEAN CORPUSCULAR HEMOGLOBIN 35.9 pg (27.0-33.4); MEAN CORPUSCULAR HGB CONC 32.9 g/dL (32.0-36.0); MEAN CORPUSCULAR VOLUME 109 fl (80-97); PLATELET COUNT 193 10^3/uL (150-450); RED BLOOD COUNT 2.47 10^6/uL (3.72-5.28); RED CELL DISTRIBUTION WIDTH 28.5 % (11.5-14.0); WHITE BLOOD COUNT 3.1 10^3/uL (4.0-10.5)
[2018-11-25 05:01] LABS: PROTHROMBIN TIME 25.5 SEC (11.4-15.4)
[2018-11-25] MEDS: CELECOXIB 100 MG CAPSULE PO SCH ×2 (09:34→18:58)
[2018-11-25] MEDS: ENOXAPARIN SODIUM INJ 100 MG/1 ML DISP.SYRIN SUBCUT SCH (09:35)
[2018-11-25] MEDS: DOCUSATE SODIUM 100 MG CAPSULE PO SCH (09:35)
[2018-11-25] MEDS: FAMOTIDINE 20 MG TABLET PO SCH ×2 (09:35→21:33)
[2018-11-25] MEDS: ACETAMINOPHEN 325 MG TABLET PO PRN ×2 (09:35→23:09)
[2018-11-25 09:42] LABS: FACTOR VIII ANTIGEN 391 % (.)
--- NOTE | 2018-11-25 13:37 | PDOC PROGRESS REPORT ---
Subjective Progress Note for:: 11/25/18 Subjective:: This is a 47 yr old female with prior history of DVt on coumadin but had poor compliance who was admitted for another acute DVT of the RLE. She was started on coumadin and being bridged with Lovenox. Her coumadin dose was increased last night from the previous doses she has been getting for the past few days. She complains this morning that the right leg pain has not improved. Reason For Visit: DVT,ANEMIA Physical Exam Vital Signs: Temp Pulse Resp BP Pulse Ox 98.5 F 63 16 100/60 97 11/25/18 11:49 11/25/18 11:49 11/25/18 11:49 11/25/18 11:49 11/25/18 11:49 Intake & Output 11/24/18 11/25/18 11/26/18 06:59 06:59 06:59 Intake Total 2136 836 355 Output Total 300 Balance 2136 536 355 Weight 204 lb 2.369 oz 204 lb 9.423 oz General appearance: PRESENT: no acute distress, well-developed, well-nourished Head exam: PRESENT: atraumatic, normocephalic Eye exam: PRESENT: conjunctiva pink, EOMI, PERRLA. ABSENT: scleral icterus Ear exam: PRESENT: normal external ear exam Mouth exam: PRESENT: moist, tongue midline Neck exam: ABSENT: carotid bruit, JVD, lymphadenopathy, thyromegaly Respiratory exam: PRESENT: clear to auscultation na. ABSENT: rales, rhonchi, wheezes Cardiovascular exam: PRESENT: RRR. ABSENT: diastolic murmur, rubs, systolic murmur Pulses: PRESENT: normal dorsalis pedis pul GI/Abdominal exam: PRESENT: normal bowel sounds, soft. ABSENT: distended, guar ding, mass, organolmegaly, rebound, tenderness Rectal exam: PRESENT: deferred Extremities exam: PRESENT: full ROM. ABSENT: calf tenderness, clubbing, pedal edema Neurological exam: PRESENT: alert, awake, oriented to person, oriented to place, oriented to time, oriented to situation, CN II-XII grossly intact. ABSENT: motor sensory deficit Results Laboratory Results: 11/25/18 04:15 11/20/18 05:35 11/24/18 11/25/18 22:40 04:15 WBC 3.1 L RBC 2.47 L Hgb 8.8 L Hct 26.9 L MCV 109 H MCH 35.9 H MCHC 32.9 RDW 28.5 H Plt Count 193 Urine Color YELLOW Urine Appearance CLEAR Urine pH 6.0 Ur Specific [place] 1.010 Urine Protein NEGATIVE Urine Glucose (UA) NEGATIVE Urine Ketones NEGATIVE Urine Blood NEGATIVE Urine Nitrite NEGATIVE Ur Leukocyte Esterase NEGATIVE Urine WBC (Auto) 1 Urine RBC (Auto) 0 11/17/18 14:46 Troponin I < 0.012 Impressions: Venous Doppler Study 11/17/18 14:39 IMPRESSION: INCOMPLETELY OCCLUSIVE HYPOECHOIC ACUTE CLOT IN THE RIGHT POPLITEAL VEIN Chest/Abdomen CTA 11/17/18 14:43 IMPRESSION: NORMAL CTA OF THE CHEST. NO PULMONARY EMBOLI. Assessment and Plan - Diagnosis (1) Acute DVT (deep venous thrombosis) Is this a current diagnosis for this admission?: Yes Plan: Her coumadin dose was increased last night from the previous doses she has been getting for the past few days. This morning's INR is the first one that is at therapeutic. She does not have a PCP. Plan to discharge her on coumadin alone tomorrow if INR remain therapeutic and she will not require further bridging with Lovenox. Will add neurontin to her pain regimen and see if she gets some relief. - Time Time Spent with patient: 15-24 minutes
[2018-11-25] MEDS: GABAPENTIN 100 MG CAPSULE PO SCH ×2 (14:16→21:33)
[2018-11-25] MEDS: OXYCODONE-ACETAMINOPHEN 5-325 MG TABLET PO PRN (18:58)
[2018-11-25] MEDS: WARFARIN SODIUM 7.5 MG TABLET PO SCH (21:31)
[2018-11-26] MEDS: OXYCODONE-ACETAMINOPHEN 5-325 MG TABLET PO PRN ×2 (04:21→10:35)
[2018-11-26 05:10] LABS: HEMATOCRIT 27.9 % (36.0-47.0); HEMOGLOBIN 9.3 g/dL (12.0-15.5); MEAN CORPUSCULAR HGB CONC 33.3 g/dL (32.0-36.0); MEAN CORPUSCULAR VOLUME 108 fl (80-97); PLATELET COUNT 216 10^3/uL (150-450); RED BLOOD COUNT 2.58 10^6/uL (3.72-5.28); RED CELL DISTRIBUTION WIDTH 27.2 % (11.5-14.0)
[2018-11-26 05:16] LABS: INTERNATIONAL RATION (INR) 2.06; PROTHROMBIN TIME 24.2 SEC (11.4-15.4)
[2018-11-26] MEDS: GABAPENTIN 100 MG CAPSULE PO SCH (05:56)
[2018-11-26] MEDS: DOCUSATE SODIUM 100 MG CAPSULE PO SCH (09:21)
[2018-11-26] MEDS: FAMOTIDINE 20 MG TABLET PO SCH (09:21)
[2018-11-26] MEDS: CELECOXIB 100 MG CAPSULE PO SCH (09:22)
[2018-11-26 12:07] VITALS: BP 106/73
--- NOTE | 2018-11-29 16:27 | PDOC DISCHARGE SUMMARY ---
General - Admit/Disc Date/PCP Admission Date/Primary Care Provider: 11/17/18 17:19 Discharge Date: 11/26/18 - Discharge Diagnosis (1) Acute DVT (deep venous thrombosis) Is this a current diagnosis for this admission?: Yes (2) Acute on chronic anemia Is this a current diagnosis for this admission?: Yes (3) Obesity Is this a current diagnosis for this admission?: Yes (4) Tobacco abuse Is this a current diagnosis for this admission?: Yes - Additional Information Discharge Diet: As Tolerated Discharge Activity: Activity As Tolerated Prescriptions: Gabapentin [Neurontin 300 mg Capsule] 300 mg PO Q8 PRN #30 cap PRN Reason: Oxycodone HCl/Acetaminophen [Percocet 5-325 mg Tablet] 1 tab PO Q6HP PRN #8 tablet PRN Reason: For Pain Warfarin Sodium [Coumadin 7.5 mg Tablet] 7.5 mg PO QHS #30 tablet Home Medications: Gabapentin [Neurontin 300 mg Capsule] 300 mg PO Q8 PRN #30 cap 11/26/18 Oxycodone HCl/Acetaminophen [Percocet 5-325 mg Tablet] 1 tab PO Q6HP PRN #8 tablet 11/26/18 Warfarin Sodium [Coumadin 7.5 mg Tablet] 7.5 mg PO QHS #30 tablet 11/26/18 History of Present Illness History of Present Illness: Admitting hospitalist's H&P: FREDDIE TAYLOR is a 37 year old female medical history of gastric bypass, chronic anemia requiring previous iron infusions, DVT, PE (currently not on anticoagulation) presented to ED complaining of dyspnea on exertion, right lower extremity swelling and pain, and right-sided pleuritic chest pain. Patient stated that her leg pain and swelling has been going on on and off for t he last 2 months and her dyspnea on exertion and right-sided chest pain has been happening for the last 1 week. For her DVT she was originally placed on Xarelto and subsequently had a PE and was switched to Coumadin and Lovenox and Coumadin. She was followed by [employer] and states that she was never worked up for hypercoagulable state or chronic anemia, it was presumed that her blood clotting was due to her smoking, being over 30 and being on control. She no longer smokes, and is not on a control. Unfortunately her insurance ran out and she has not been taking her anticoagulation for the last 1 year. Hospital Course Hospital Course: This is a 47 yr old female with prior history of DVT on coumadin but had poor compliance who was admitted for another acute DVT of the RLE. Chest CTA negative for PE. She has chronic anemia and was found to have a Hb of 6 and received 2 units of pRBC. She was evaluated by hematology and her anemia was deemed to be from B12 deficiency from her previous gastric bypass. She was started on coumadin and was being bridged with Lovenox. Her INR was consistently therapeutic and she was discharged on coumadin without need for bridging. She will follow up closely with hematology where she will be getting her B12 injections. Physical Exam Vital Signs: Temp Pulse Resp BP Pulse Ox 98.1 F 76 16 106/73 99 11/26/18 12:06 11/26/18 12:06 11/26/18 12:06 11/26/18 12:06 11/26/18 12:06 General appearance: PRESENT: no acute distress, well-developed, well-nourished Head exam: PRESENT: atraumatic, normocephalic Eye exam: PRESENT: conjunctiva pink, EOMI, PERRLA. ABSENT: scleral icterus Ear exam: PRESENT: normal external ear exam Mouth exam: PRESENT: moist, tongue midline Neck exam: ABSENT: carotid bruit, JVD, lymphadenopathy, thyromegaly Respiratory exam: PRESENT: clear to auscultation na. ABSENT: rales, rhonchi, wheezes Cardiovascular exam: PRESENT: RRR. ABSENT: diastolic murmur, rubs, systolic murmur Pulses: PRESENT: normal dorsalis pedis pul GI/Abdominal exam: PRESENT: normal bowel sounds, soft. ABSENT: distended, guarding, mass, organolmegaly, rebound, tenderness Rectal exam: PRESENT: deferred Extremities exam: PRESENT: full ROM. ABSENT: calf tenderness, clubbing, pedal edema Neurological exam: PRESENT: alert, awake, oriented to person, oriented to place, oriented to time, oriented to situation, CN II-XII grossly intact. ABSENT: motor sensory deficit Results Laboratory Results: 11/26/18 04:17 11/20/18 05:35 11/17/18 14:46 Troponin I < 0.012 Impressions: Venous Doppler Study 11/17/18 14:39 IMPRESSION: INCOMPLETELY OCCLUSIVE HYPOECHOIC ACUTE CLOT IN THE RIGHT POPLITEAL VEIN Chest/Abdomen CTA 11/17/18 14:43 IMPRESSION: NORMAL CTA OF THE CHEST. NO PULMONARY EMBOLI. Qualifiers - * PATIENT BEING DISCHARGED WITH ANY OF THE FOLLOWING DIAGNOSIS: No Acute Heart Failure Is this a Heart Failure Patient?: No
== END 2018-11-26 13:55 | disposition home or self-care (01) | DRG 301 ==
LOC: ER 14:05 → EH 17:19 → 3S 20:21
PROVIDERS: ADMIT Internal Medicine; ATTEND Internal Medicine
PROC: 30233N1 Transfusion of Nonautologous Red Blood Cells into Peripheral Vein, Percutaneous Approach (ICD-10-PCS; principal; 2018-11-17)
DX: I82.431 Acute embolism and thrombosis of right popliteal vein (principal); E66.9 Obesity, unspecified; D51.9 Vitamin B12 deficiency anemia, unspecified; F31.9 Bipolar disorder, unspecified; F41.9 Anxiety disorder, unspecified; Z68.31 Body mass index [BMI] 31.0-31.9, adult; Z98.84 Bariatric surgery status; Z79.01 Long term (current) use of anticoagulants; Z86.718 Personal history of other venous thrombosis and embolism; Z91.14 Patient's other noncompliance with medication regimen; Z87.891 Personal history of nicotine dependence; Z86.711 Personal history of pulmonary embolism; Z91.040 Latex allergy status
CPT/HCPCS: 36415; 36430; 71275; 80048; 80053; 81001; 81241; 82272; 82607; 82728; 82746; 83540; 83550; 84484; 85025; 85027; 85045; 85240; 85244; 85245; 85250; 85300; 85302; 85305; 85306; 85597; 85598; 85610; 85613; 85730; 85732; 86146; 86147; 86148; 86849; 86850; 86900; 86901; 86920; 93971; 99285; J1650; J2270; J2550; J3420; J3490; J7042; P9016; S0119